=== PATIENT | female | born 1985 | race Caucasian/White ===

== ENCOUNTER 2021-03-15 09:42 | Inpatient (IN) | payer OTHER, SELFPAY ==
--- NOTE | ~2021-03-15 | XR_ITS ---
EXAMINATION: XR CHEST CLINICAL INFORMATION: Fever and elevated white blood cell count. Rule out pneumonia. COMPARISON: Chest radiograph 01/19/2019 TECHNIQUE: Frontal view of the chest was obtained. FINDINGS: No significant abnormality is noted involving the heart, lungs, mediastinum, bony thorax or soft tissues. There are metallic clips XR/XR chest 1V overlying the right upper quadrant of the abdomen. IMPRESSION: Unremarkable examination.
[2021-03-15 10:08] VITALS: BP 113/78; PULSE 97; RESP 14; TEMP 37; O2SAT 100; BMI 29.2
[2021-03-15 10:21] VITALS: BP 113/78; PULSE 101; RESP 12; TEMP 37; O2SAT 98
--- NOTE | 2021-03-15 10:25 | ED.NAVMDI ---
HPI - Nausea/Vomiting/Diarrhea General Chief complaint: Nausea/Vomiting/Diarrhea Stated complaint: vomiting,headache Time Seen by Provider: 03/15/21 10:20 Source: patient Mode of arrival: ambulatory Limitations: no limitations History of Present Illness HPI Narrative: 35-year-old female came in for evaluation of flu-like symptoms for 2 days. Patient been having nausea and vomiting, and diarrhea, with upper abdominal cramps for the past 2 days. Patient also been having fever chills, runny nose, coughing, sneezing, and headache. No sick contact, no recent travel. Patient received vaccination for COVID x2. Related Data Previous Rx's Medication Instructions Recorded cefuroxime axetil 500 mg tablet 500 mg PO BID #20 tab 03/15/21 Allergies Allergy/AdvReac Type Severity Reaction Status Date / Time Sulfa (Sulfonamide AdvReac Unknown VOMITING Verified 03/15/21 10:20 Antibiotics) [SULFA (SULFONAMIDE ANTIBIOTICS)] Sulfamethoxazole Allergy Unknown vomiting Uncoded 10/16/19 00:00 Review of Systems Review of Systems: All other systems are reviewed and are negative Constitutional: Reports as per HPI and Reports no additional constitutional complaints Eyes: Reports as per HPI and Reports no additional eye complaints Reports system reviewed and no additional complaints, except as documented Cardiovascular: Reports as per HPI and Reports no additional cardiovascular complaints Respiratory: Reports as per HPI and Reports no additional respiratory complaints Gastrointestinal: Reports as per HPI and Reports no additional gastrointestinal complaints Genitourinary: Reports no additional female genitourinary complaints Musculoskeletal: Reports no additional musculoskeletal complaints Skin/Breast: Reports system reviewed and no additional complaints, except as docu Psychiatric: Reports no additional psychiatric complaints Endocrine: Reports no additional endocrine complaints Hematologic/Lymphatic: Reports no additional hematologic/lymphatic complaints Allergic/Immunologic: Reports no additional allergic/immunologic complaints Reports system reviewed and no additional complaints, except as documented and Reports Abnormal speech present [facility] Social History Social History Advance Directives: No Advance Directives Information Provided: Yes Physical Exam Vital Signs: Vital Signs: Last Vital Signs Temp 99.7 F 03/15/21 13:57 Pulse 84 03/15/21 13:57 Resp 16 03/15/21 13:57 BP 115/78 03/15/21 13:57 Pulse Ox 100 03/15/21 13:57 Body Mass Index 29.2 Vital signs have been reviewed as appeared to be correct. Blood pressure normal. Heart rate normal. Respiration rate normal. Temperature normal. Oxygen saturation normal. Appearance: Alert. Oriented X3. No acute distress. Head: Normal external exam. Normocephalic. Atraumatic. No Freeman signs noted. No raccoon eyes noted Eyes: PERRLA. EOMI. Conjunctiva and sclera normal. Eyelids normal. ENT: TM's Normal. Pharynx normal. Uvula midline. Moist mucous membranes. No trismus noted. No drooling noted. No muffled voice noted. Neck: Normal inspection. Neck supple. FROM. No adenopathy. Thyroid Normal. No meningeal signs. No neck mass noted. CVS: Normal heart rate and rhythm. Heart sound normal. No murmurs noted. Pulses normal throughout. Respiratory: No respiratory distress. Painless inspiration. Breath sounds normal. No wheezes/rales/rhonchi noted. Chest nontender. No accessory muscle usage noted or decreased air movement noted. Abdomen: Soft and nontender. Bowel sounds normal in all 4 quadrants. No distention noted. No organomegaly noted. No visible injury noted. Back: L CVA tenderness. Full range of motion noted. Skin: Skin warm and dry. Normal skin color. Normal skin turgor. No rashes/lesions/lacerations noted. Extremities: No lower extremity edema. Extremities exhibit normal range of motion. Extremities nontender. Neuro: Oriented X 3. Cranial nerve exam: II-XII are grossly intact No motor deficit. No sensory deficit. Reflexes normal. Course Course Course Narrative: Assessment and plan. 35-year-old female came in for evaluation of flu-like symptoms for the past 2 days, with intractable nausea, and vomiting. Leukocytosis, Patient received IV fluid and Toradol and morphine for pain. Patient is slightly feels better but still unable to keep p.o. intake because of persistent vomiting. Will admit the patient for IV hydration and IV antibiotic. MDM - Nausea/Vomiting/Diarrhea Differential Diagnosis Differential diagnosis: Likely food poisoning, gastroenteritis, drug-induced nausea and vomiting and dehydration Medical Records Attestation: I reviewed the patient's medical records. Lab Data Attestation: I reviewed the patient's lab results. Result diagrams: 03/15/21 10:45 03/15/21 10:59 Labs: Lab Results 03/15/21 03/15/21 03/15/21 Range/Units 10:45 10:45 10:45 WBC 18.5 H (4.8-10.8) X10*3/uL RBC 4.18 L (4.20-5.50) X10*6/uL Hgb 12.1 (12.0-16.0) g/dl Hct 36.1 L (37-47) % MCV 86.4 (80-98) fL MCH 28.9 (27.0-33.0) pg MCHC 33.5 (31.0-35.0) g/dl RDW 14.5 (11.0-16.0) % Plt Count 260 (160-400) X10*3/uL MPV 10.4 (9.4-12.3) fL Immature Gran % (Auto) 0.9 H (0.0-0.4) % Neut % (Auto) 77.4 H (45-73) % Lymph % (Auto) 10.1 L (20-40) % [place] % (Auto) 11.0 (2-11) % Eos % (Auto) 0.4 (0-4) % Baso % (Auto) 0.2 (0-2) % Lymph # (Auto) 1.9 (1.2-4.9) X10*3/uL [place] # (Auto) 2.0 H (0.1-1.2) X10*3/uL Eos # (Auto) 0.1 (0.0-0.4) X10*3/uL Baso # (Auto) 0.0 (0.0-0.2) X10*3/uL Abs Immat Gran (auto) 0.16 H (0.00-0.03) X10*3/uL Absolute Neuts (auto) 14.3 H (2.0-8.3) X10*3/uL Absolute Nucleated RBC 0.000 (0.0-0.012) X10*3/uL Nucleated RBC % (auto) 0.0 (0.0-0.2) /100WBC Smear Tech's Comments VERIFIED Sodium (135-145) mmol/L Potassium (3.3-5.1) mmol/L Chloride (96-108) mmol/L Carbon Dioxide (22-29) mmol/L Anion Gap (12-20) BUN (9-16) mg/dL Creatinine (0.5-1.4) mg/dL Estim Creat Clear Calc Estimated GFR Random Glucose (60-115) mg/dL Lactic Acid 1.5 (0.5-2.0) mmol/L Calcium (8.4-10.2) mg/dL Total Bilirubin (0.0-1.0) mg/dL Direct Bilirubin (0.0-0.5) mg/dL AST (5-31) U/L ALT (0-31) U/L Alkaline Phosphatase (39-117) U/L Total Protein (6.5-8.0) g/dL Albumin (3.5-5.0) g/dL Lipase (8-78) U/L Urine Color Urine Appearance Urine pH (5.0-8.0) Ur Specific Ir[place] (1.005-1.025) Urine Protein (NEG-TRACE) MG/DL Urine Glucose (UA) (NEG) MG/DL Urine Ketones (NEG) MG/DL Urine Blood (NEG) Urine Nitrite (NEG) Ur Leukocyte Esterase (NEG) Urine RBC (0) /HPF Urine WBC (0-4) /HPF Ur Squamous Epith Cells /LPF Urine Bacteria /LPF Coronavirus (PCR) NEGATIVE (Negative) Influenza Type A (PCR) NEGATIVE (Negative) Influenza Type B (PCR) NEGATIVE (Negative) RSV RNA Qual (PCR) NEGATIVE (Negative) 03/15/21 03/15/21 Range/Units 10:45 10:59 WBC (4.8-10.8) X10*3/uL RBC (4.20-5.50) X10*6/uL Hgb (12.0-16.0) g/dl Hct (37-47) % MCV (80-98) fL MCH (27.0-33.0) pg MCHC (31.0-35.0) g/dl RDW (11.0-16.0) % Plt Count (160-400) X10*3/uL MPV (9.4-12.3) fL Immature Gran % (Auto) (0.0-0.4) % Neut % (Auto) (45-73) % Lymph % (Auto) (20-40) % [place] % (Auto) (2-11) % Eos % (Auto) (0-4) % Baso % (Auto) (0-2) % Lymph # (Auto) (1.2-4.9) X10*3/uL [place] # (Auto) (0.1-1.2) X10*3/uL Eos # (Auto) (0.0-0.4) X10*3/uL Baso # (Auto) (0.0-0.2) X10*3/uL Abs Immat Gran (auto) (0.00-0.03) X10*3/uL Absolute Neuts (auto) (2.0-8.3) X10*3/uL Absolute Nucleated RBC (0.0-0.012) X10*3/uL Nucleated RBC % (auto) (0.0-0.2) /100WBC Smear Tech's Comments Sodium 137 (135-145) mmol/L Potassium 3.3 (3.3-5.1) mmol/L Chloride 102 (96-108) mmol/L Carbon Dioxide 25 (22-29) mmol/L Anion Gap 13 (12-20) BUN 13 (9-16) mg/dL Creatinine 0.86 (0.5-1.4) mg/dL Estim Creat Clear Calc 77.0 Estimated GFR > 60 Random Glucose 95 (60-115) mg/dL Lactic Acid (0.5-2.0) mmol/L Calcium 8.8 (8.4-10.2) mg/dL Total Bilirubin 0.5 (0.0-1.0) mg/dL Direct Bilirubin 0.2 (0.0-0.5) mg/dL AST 22 (5-31) U/L ALT 43 H (0-31) U/L Alkaline Phosphatase 186 H (39-117) U/L Total Protein 6.6 (6.5-8.0) g/dL Albumin 3.7 (3.5-5.0) g/dL Lipase 7 L (8-78) U/L Urine Color YELLOW Urine Appearance CLEAR Urine pH 6.0 (5.0-8.0) Ur Specific [place] 1.015 (1.005-1.025) Urine Protein 2+ H (NEG-TRACE) MG/DL Urine Glucose (UA) NEG (NEG) MG/DL Urine Ketones 5 (NEG) MG/DL Urine Blood 2+ H (NEG) Urine Nitrite NEG (NEG) Ur Leukocyte Esterase TRACE H (NEG) Urine RBC 1-4 (0) /HPF Urine WBC 5-9 H (0-4) /HPF Ur Squamous Epith Cells TRACE /LPF Urine Bacteria 1+ /LPF Coronavirus (PCR) (Negative) Influenza Type A (PCR) (Negative) Influenza Type B (PCR) (Negative) RSV RNA Qual (PCR) (Negative) Imaging Data Chest x-ray: Radiologist's impression: No significant abnormality is noted involving the heart, lungs, mediastinum, bony thorax or soft tissues. There are metallic clips overlying the right upper quadrant of the abdomen. IMPRESSION: Unremarkable examination. ? Discharge Plan Discharge Clinical Impression: Gastroenteritis, Dehydration, Pyelonephritis Patient Disposition: Admitted As Inpatient Instructions: Urinary Tract Infection in Women (ED) Prescriptions: New cefuroxime axetil 500 mg tablet 500 mg PO BID Qty: 20 RF: 0 Referrals: Alisha Fong MD [Primary Care Provider] - 2 days
--- NOTE | 2021-03-15 10:45 | PC.NURSE ---
pt alert and oriented x3, tachy on monitor. she c/o of headache, n/v, epigastric pain, stuffy runny nose, nonproductive cough since . no dizziness, no chest pain, no sob, no difficulty breathing. Pt states she has not had any exposure to anyone sick. She took Tylenol for headache this morning but no relief. She does not report any other symptoms. pt awaiting lab results, no apparent distress.
[2021-03-15 10:57] LABS: Basophils Percent Auto 0.2 % (0-2); Eosinophils Absolute Auto 0.1 X10*3/uL (0.0-0.4); Eosinophils Percent Auto 0.4 % (0-4); Hematocrit 36.1 % (37-47); Hemoglobin 12.1 g/dl (12.0-16.0); Imm Gran Abs Auto 0.16 X10*3/uL (0.00-0.03); Imm Gran Pct Auto 0.9 % (0.0-0.4); Lymphocytes Absolute Auto 1.9 X10*3/uL (1.2-4.9); Lymphocytes Percent Auto 10.1 % (20-40); MANUAL DIFF FLAG SCAN; Mean Corpuscular HGB Conc 33.5 g/dl (31.0-35.0); Mean Corpuscular Hemoglobin 28.9 pg (27.0-33.0); Mean Corpuscular Volume 86.4 fL (80-98); Mean Platelet Volume 10.4 fL (9.4-12.3); Neutrophils Absolute Auto 14.3 X10*3/uL (2.0-8.3); Neutrophils Percent Auto 77.4 % (45-73); Platelet Count 260 X10*3/uL (160-400); Red Blood Count 4.18 X10*6/uL (4.20-5.50); Red Cell Distribution Width 14.5 % (11.0-16.0); SCAN SMEAR FLAG 1; White Blood Count 18.5 X10*3/uL (4.8-10.8)
[2021-03-15] MEDS: 0.9 % Sodium Chloride 1,000 ML 999 ML IVCONT ×2 (11:04→13:53)
[2021-03-15 11:09] LABS: Glucose Urine UA NEG (NEG); Leukocyte Esterase Urine TRACE (NEG); Nitrite Urine NEG (NEG); Specific Gravity - Urine 1.015 (1.005-1.025); UACC Culture Trigger YES; Urine Blood 2+ (NEG); Urine Ketones 5 MG/DL (NEG); Urine Protein 2+ MG/DL (NEG-TRACE)
[2021-03-15 11:12] LABS: Appearance Urine CLEAR; Color Urine YELLOW
[2021-03-15] MEDS: ondansetron HCL 4 MG/2 ML VIAL IVPUSH ×3 (11:12→19:43)
[2021-03-15] MEDS: Famotidine/PF 20 MG/2 ML VIAL IVPUSH (11:12)
[2021-03-15 11:13] LABS: Lactic Acid 1.5 mmol/L (0.5-2.0)
[2021-03-15 11:22] LABS: Bacteria Urine 1+ /LPF; Squamous Epithelial Cell Urine TRACE /LPF
[2021-03-15 11:26] LABS: SLIDE REVIEW VERIFIED
[2021-03-15 11:33] LABS: Alanine Aminotransferase 43 U/L (0-31); Albumin Level 3.7 g/dL (3.5-5.0); Alkaline Phosphatase 186 U/L (39-117); Anion Gap 13 (12-20); Aspartate Amino Transferase 22 U/L (5-31); Bilirubin Direct 0.2 mg/dL (0.0-0.5); Bilirubin Total 0.5 mg/dL (0.0-1.0); Blood Urea Nitrogen 13 mg/dL (9-16); Calcium 8.8 mg/dL (8.4-10.2); Carbon Dioxide 25 mmol/L (22-29); Chloride 102 mmol/L (96-108); Estimated Glomerular Filt Rate > 60; Glucose Random 95 mg/dL (60-115); Lipase 7 U/L (8-78); Potassium 3.3 mmol/L (3.3-5.1); Sodium 137 mmol/L (135-145); Total Protein 6.6 g/dL (6.5-8.0)
--- NOTE | 2021-03-15 13:50 | PC.NURSE ---
Pt's vs remains stable. She c/o worsening abdominal pain. she also stated she still feels nauseous. pt has not vomited since arriving to the ed. She was given crackers and apple juice and was able to keep it down. However, she still c/o nausea after eating. iv meds given as document, fluids hung. Pt resting quietly at this time, no apparent distress noted.
[2021-03-15] MEDS: Ketorolac Tromethamine 15 MG/ML VIAL 30 MG IVPUSH (13:54)
[2021-03-15] MEDS: cefTRIAXone sodium 1 GM in 0.9 % Sodium Chloride 50 ML IV (13:54)
[2021-03-15 13:57] VITALS: BP 115/78; PULSE 84; RESP 16; TEMP 37.6; O2SAT 100
[2021-03-15 14:03] LABS: Influenza A PCR NEGATIVE (Negative); Influenza B PCR NEGATIVE (Negative); Resp Syncy Virus RNA Qual PCR NEGATIVE (Negative); SARS COV2 PCR INHOUSE NEGATIVE (Negative)
[2021-03-15] MEDS: Morphine Sulfate 2 MG/ML CARTRIDGE IVPUSH (15:17)
[2021-03-15 15:38] VITALS: BP 107/63; PULSE 92; RESP 18; TEMP 36.8; O2SAT 100
[2021-03-15 16:00] VITALS: BP 102/66; PULSE 84; RESP 16; TEMP 36.8; O2SAT 99
--- NOTE | 2021-03-15 17:20 | PC.NURSE ---
Admitting provider in to see pt. pt awaiting bed assignment. vs remains stable. Fluids hung as documented
[2021-03-15] MEDS: Dextrose 5 % and 0.9 % NaCl 1,000 ML 100 ML IVCONT (17:47)
--- NOTE | 2021-03-15 17:48 | HP_ITS ---
DATE OF SERVICE: 03/15/2021 CHIEF COMPLAINT: Nausea, vomiting, and abdominal cramps. HISTORY OF PRESENTING ILLNESS: This is a 35-year-old female patient with no significant past medical history, presented to [facility] with 2 days' history of nausea, vomiting, has not eaten in 3 days with projectile vomitus, non bloody, associated with abdominal cramps, headache, fever, chills with T-max 102.9 at home. She was urinating and vomiting at the same time, so did not realize if she has any urinary burning or not, but does admit to have urinary frequency. Also complained of lower back pain with no radiation, no prior history of recurrent urinary tract infection. No other family member is sick. No history of recent travel. Denies any skin rash, joint pains. In the emergency room, the patient was noted to have tachycardia. She is afebrile. Laboratory data showed an elevated WBC count. Urinalysis is mildly positive with 5 to 9 wbc's and 1+ bacteria. The patient was treated in the emergency room with IV fluids, IV morphine, but due to persistent nausea, vomiting, and inability to keep the food down, the patient is being admitted to [facility] with a possible diagnosis of acute pyelonephritis. PAST MEDICAL HISTORY: Significant for compromised immune system. MEDICATIONS: She is not on any home medication. ALLERGIES: THE PATIENT IS ALLERGIC TO SULFA THAT CAUSES VOMITING. SOCIAL HISTORY: The patient lives with a boyfriend. She smokes half a pack of cigarettes a day. She denies any illicit drug use. She occasionally drinks alcohol. FAMILY HISTORY: Father in an accident. Mother does not have any acute medical issues. Does not have any history of diabetes or premature coronary artery disease. 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 CVS: She denies any chest pain or palpitations. RESPIRATORY: She denies any cough, sputum production, or shortness of breath. : She is complaining of urinary burning and frequency. MUSCULOSKELETAL: Denies any joint pain. SKIN: Denies any rashes. Rest of all other system reviewed and are negative. PHYSICAL EXAMINATION: GENERAL: The patient is resting in bed. Does not appear to be in acute distress. VITAL SIGNS: BP 102/66; pulse of 84, initially pulse was 101; T-max 99.7; O2 saturation 99 on room air. HEENT: Pupils equal, round, and reactive to light and accommodation. Extraocular muscles intact. Anicteric sclerae. NECK: Supple. No JVD. No lymphadenopathy. LUNGS: Clear to auscultation bilaterally. HEART: Regular rate and rhythm. ABDOMEN: Soft, nontender. Bowel sounds are audible. LOWER BACK: Mild CVA tenderness bilaterally. EXTREMITIES: Without clubbing, cyanosis, or edema. SKIN: Warm and dry. No rashes. NEUROLOGIC: Nonfocal. LABORATORY DATA: Showed a WBC count of 18,500, hematocrit 36. Sodium 137, potassium 3.3, ALT 43, alkaline phosphatase 186, and lipase of 7. Gillespie PCR is negative. Influenza A is negative. PNRSV PCR is negative. IMAGING STUDY: Chest x-ray showed no acute abnormality. Urinalysis showed 2+ blood, trace leukocyte esterase, 5 to 9 wbc's and 1+ bacteria. ASSESSMENT AND PLAN: This is a 35-year-old female patient with no significant past medical history, presented with multiple symptoms including nausea, vomiting, headache, fever, chills, and urinary symptoms. The patient is being admitted with intractable nausea, vomiting likely related to acute pyelonephritis. 1. Intractable nausea, vomiting, fever and leukocytosis likley Sepsis due to acute pyelonephritis, will admit to medical floor, will be placed on IV fluids, antiemetics, and IV ceftriaxone. We will follow 2 sets of blood cultures and urine cultures. Place on morphine and Tylenol for pain control. Elevated LFTs likely due to sepsis will follow labs 2. Deep vein thrombosis prophylaxis. Low risk. 3. Code status, full code. MD TEREZA Lorenz/JULIETTE / [id number] HERIBERTO
--- NOTE | 2021-03-15 18:35 | PC.NURSE ---
report given to VALENTINO Stockton on IMC. Pt eating supper at this time, tolerating po meal well
[2021-03-15] MEDS: 0.9 % Sodium Chloride Flush 3 ML SYRINGE IVFLUSH (19:42)
[2021-03-15] MEDS: Morphine Sulfate 4 MG/ML CARTRIDGE 3 MG IVPUSH (19:42)
[2021-03-15] MEDS: Acetaminophen 325 MG TABLET 650 MG PO (23:07)
[2021-03-15 23:16] VITALS: BP 112/68; PULSE 87; RESP 16; TEMP 36.8; O2SAT 100
[2021-03-16] MEDS: Morphine Sulfate 4 MG/ML CARTRIDGE 3 MG IVPUSH ×6 (00:01→21:17)
[2021-03-16] MEDS: ondansetron HCL 4 MG/2 ML VIAL IVPUSH ×3 (04:25→21:17)
[2021-03-16] MEDS: Dextrose 5 % and 0.9 % NaCl 1,000 ML 100 ML IVCONT ×2 (04:25→14:49)
[2021-03-16 07:23] VITALS: BP 105/69; PULSE 73; RESP 18; TEMP 36.6; O2SAT 99
[2021-03-16] MEDS: 0.9 % Sodium Chloride Flush 3 ML SYRINGE IVFLUSH ×3 (08:33→21:17)
--- NOTE | 2021-03-16 08:53 | MHC.CM.PN ---
CM met with Patient at bedside. Patient lives in a condo with her Boyfriend and she is functionally independent and working. Patient's goal for dc is to return home and CM has initiated and will follow for dc planning. PCP is DR. Mer Fong.
[2021-03-16 11:18] VITALS: BP 119/73; PULSE 77; RESP 18; TEMP 36.3; O2SAT 100
[2021-03-16] MEDS: cefTRIAXone sodium 1 GM in 0.9 % Sodium Chloride 50 ML IV (12:36)
[2021-03-16 14:03] LABS: MANUAL DIFF FLAG NO
[2021-03-16 14:05] LABS: Basophils Percent Auto 0.2 % (0-2); Eosinophils Absolute Auto 0.1 X10*3/uL (0.0-0.4); Eosinophils Percent Auto 1.3 % (0-4); Hematocrit 28.5 % (37-47); Hemoglobin 9.4 g/dl (12.0-16.0); Imm Gran Abs Auto 0.14 X10*3/uL (0.00-0.03); Imm Gran Pct Auto 1.4 % (0.0-0.4); Lymphocytes Percent Auto 19.8 % (20-40); Mean Corpuscular Hemoglobin 28.7 pg (27.0-33.0); Mean Corpuscular Volume 86.9 fL (80-98); Mean Platelet Volume 10.3 fL (9.4-12.3); Monocytes Absolute Auto 1.2 X10*3/uL (0.1-1.2); Neutrophils Absolute Auto 6.6 X10*3/uL (2.0-8.3); Neutrophils Percent Auto 65.3 % (45-73); Platelet Count 248 X10*3/uL (160-400); Red Blood Count 3.28 X10*6/uL (4.20-5.50); Red Cell Distribution Width 14.8 % (11.0-16.0); White Blood Count 10.2 X10*3/uL (4.8-10.8)
[2021-03-16 14:31] LABS: Alanine Aminotransferase 24 U/L (0-31); Albumin Level 3.1 g/dL (3.5-5.0); Alkaline Phosphatase 134 U/L (39-117); Aspartate Amino Transferase 13 U/L (5-31); Bilirubin Direct < 0.2 mg/dL (0.0-0.5); Bilirubin Total 0.5 mg/dL (0.0-1.0); Total Protein 5.4 g/dL (6.5-8.0)
[2021-03-16] MEDS: Cyclobenzaprine HCl 10 MG TABLET PO ×2 (14:49→21:15)
[2021-03-16] MEDS: clonazePAM 1 MG TABLET PO ×2 (14:49→21:16)
[2021-03-16 15:08] VITALS: BP 113/71; PULSE 90; RESP 20; TEMP 36.3; O2SAT 100
--- NOTE | 2021-03-16 15:43 | HO.PM.IMPN ---
Subjective Subjective Date of Service: 03/16/21 Interval History: Complaining of lack of sleep due to IV beeping all night, complaining of nausea, abdominal discomfort and diarrhea unable to eat. Review of Systems General no headache, no dizziness no fever chills. CVS no chest pain, no palpitation. Respiratory no cough no sob Gastrointestinal complaining of nausea, abdominal pain, and diarrhea loose watery, nonbloody Physical Exam Vital Signs: Vital Signs: Last Vital Signs Temp 97.4 F 03/16/21 15:08 Pulse 90 03/16/21 15:08 Resp 20 03/16/21 15:08 BP 113/71 03/16/21 15:08 Pulse Ox 100 03/16/21 15:08 Body Mass Index 29.2 General no acute distress. Neck supple no JVD. CVS regular rate rhythm, Respiratory lungs clear to auscultation, no respiratory distress, no wheeze, no rhonchi. Gastrointestinal abdomen soft, nontender, bowel sounds audible, no guarding , no rigidity. No Bhandari sign No CVA tenderness Extremities no edema. Neuro nonfocal . Skin no rash Objective Data Current Medications Generic Name Dose Route Start Last Admin Trade Name Freq PRN Reason Stop Dose Admin Acetaminophen 650 mg 03/15/21 16:54 03/15/21 23:07 Acetaminophen 325 Mg Tablet PO 650 mg Q6H PRN Administration Pain, Mild (Pain Scale 1-3) Buspirone HCl 10 mg 03/16/21 21:00 Buspirone Hcl 10 Mg Tablet PO BID TINO Clonazepam 1 mg 03/16/21 13:29 03/16/21 14:49 Clonazepam 1 Mg Tablet PO 1 mg BID PRN Administration anxiety Cyclobenzaprine HCl 10 mg 03/16/21 13:29 03/16/21 14:49 Cyclobenzaprine Hcl 10 Mg Tablet PO 10 mg TID PRN Administration muscle spasm Duloxetine HCl 60 mg 03/16/21 21:00 Duloxetine Hcl 60 Mg Capsule. PO BEDTIME TINO Dextrose/Sodium Chloride 1,000 mls @ 100 mls/hr 03/15/21 17:00 03/16/21 14:49 D5ns IVCONT 100 mls/hr .Q10H TINO Administration Ceftriaxone Sodium 1 gm/ 50 mls @ 100 mls/hr 03/16/21 13:00 03/16/21 13:08 Sodium Chloride IV Infused Q24H TINO Infusion Morphine Sulfate 3 mg 03/15/21 16:54 03/16/21 12:35 Morphine Sulfate 4 Mg/Ml Cartridge IVPUSH 3 mg Q4H PRN Administration Pain, Severe (Pain Scale 7-10) Protocol Omeprazole 20 mg 03/17/21 06:30 Omeprazole 20 Mg Capsule. PO DAILY@0630 [facility] Ondansetron HCl 4 mg 03/15/21 16:54 03/16/21 12:35 Ondansetron Hcl 4 Mg/2 Ml Vial IVPUSH 4 mg Q8H PRN Administration Nausea and Vomiting Sodium Chloride 3 ml 03/16/21 00:00 03/16/21 08:33 0.9 % Sodium Chloride Flush 3 Ml Syringe IVFLUSH 3 ml QSHIFT [facility] Administration Labs CBC & Chem 7: 03/16/21 13:47 03/15/21 10:59 Labs: Laboratory Results - last 24 hr 03/16/21 03/16/21 13:47 13:47 MCV 86.9 MCH 28.7 MCHC 33.0 RDW 14.8 Plt Count 248 MPV 10.3 Immature Gran % (Auto) 1.4 H Neut % (Auto) 65.3 Lymph % (Auto) 19.8 L [place] % (Auto) 12.0 H Eos % (Auto) 1.3 Baso % (Auto) 0.2 Lymph # (Auto) 2.0 [place] # (Auto) 1.2 Eos # (Auto) 0.1 Baso # (Auto) 0.0 Abs Immat Gran (auto) 0.14 H Absolute Neuts (auto) 6.6 Absolute Nucleated RBC 0.000 Nucleated RBC % (auto) 0.0 Total Bilirubin 0.5 Direct Bilirubin < 0.2 AST 13 D ALT 24 Alkaline Phosphatase 134 H D Total Protein 5.4 L Albumin 3.1 L Microbiology Microbiology Results: Microbiology 03/15/21 10:58 Blood Culture - Preliminary Blood - Venous No growth after 24 hours. 03/15/21 10:45 Blood Culture - Preliminary Blood - Venous No growth after 24 hours. 03/15/21 Unknown Urine Culture - Final Urine clean catch - Urine lopez top Assessment and Plan (1) Gastroenteritis: Status: Acute (2) Dehydration: Status: Acute (3) Elevated LFTs: Status: Acute Assessment and Plan: 35-year-old female patient with no significant past medical history, presented with multiple symptoms including nausea, vomiting, headache, fever,chills, and urinary symptoms.? The patient is being admitted with intractable nausea, vomiting related to acute pyelonephritis. 1. Intractable nausea vomiting abdominal pain and diarrhea Leukocytosis and tachycardia Likely due to gastroenteritis, therefore no sepsis, blood culture x2 negative Initially admitted due to sepsis with assumption of acute pyelo since urinalysis was positive, however urine culture is negative Will discontinue IV antibiotic Continue supportive care with antiemetics, analgesics and IV fluid Borderline low potassium will replace and follow BMP no sepsis 2. Elevated LFTs likely due to gastroenteritis, LFTs trending down no right upper quadrant abdominal pain follow labs 3.Mood disorder continue Cymbalta and buspirone Deep vein thrombosis prophylaxis.? Low risk. Code status, full code. Quality Stroke Does the patient have a stroke diagnosis?: No VTE Prior VTE?: No VTE Risk Level:: Medical - low VTE Device Contraindication: Treatment Not Indicated VTE Drug Contraindication: Treatment Not Indicated
[2021-03-16] MEDS: KCl 40 mEq in 0.9 % Sodium Chl 40 MEQ/1,000 ML IV.SOLN 100 MEQ IVCONT (17:08)
[2021-03-16] MEDS: busPIRone HCl 10 MG TABLET PO (21:16)
[2021-03-16] MEDS: DULoxetine HCl 60 MG CAPSULE.DR PO (21:16)
[2021-03-16 23:36] VITALS: BP 94/48; PULSE 82; RESP 18; TEMP 37.2; O2SAT 99
[2021-03-17] MEDS: Morphine Sulfate 4 MG/ML CARTRIDGE 3 MG IVPUSH ×3 (02:11→10:30)
[2021-03-17] MEDS: Omeprazole 20 MG CAPSULE.DR PO (06:16)
[2021-03-17] MEDS: ondansetron HCL 4 MG/2 ML VIAL IVPUSH (06:17)
[2021-03-17 06:44] LABS: Hemoglobin 10.1 g/dl (12.0-16.0); Mean Corpuscular HGB Conc 33.7 g/dl (31.0-35.0); Mean Corpuscular Volume 86.2 fL (80-98); Mean Platelet Volume 10.2 fL (9.4-12.3); Platelet Count 282 X10*3/uL (160-400); Red Blood Count 3.48 X10*6/uL (4.20-5.50); Red Cell Distribution Width 15.2 % (11.0-16.0); White Blood Count 11.2 X10*3/uL (4.8-10.8)
[2021-03-17 07:04] VITALS: BP 109/64; PULSE 75; RESP 20; TEMP 36.6; O2SAT 98
[2021-03-17 07:14] LABS: Alanine Aminotransferase 23 U/L (0-31); Albumin Level 3.3 g/dL (3.5-5.0); Alkaline Phosphatase 134 U/L (39-117); Anion Gap 14 (12-20); Aspartate Amino Transferase 13 U/L (5-31); Bilirubin Direct 0.2 mg/dL (0.0-0.5); Bilirubin Total 0.7 mg/dL (0.0-1.0); Blood Urea Nitrogen 3 mg/dL (9-16); Calcium 8.6 mg/dL (8.4-10.2); Carbon Dioxide 23 mmol/L (22-29); Chloride 110 mmol/L (96-108); Creatinine Clr Calc Pharmacy 78.9; Estimated Glomerular Filt Rate > 60; Glucose Random 99 mg/dL (60-115); Potassium 3.8 mmol/L (3.3-5.1); Sodium 143 mmol/L (135-145); Total Protein 5.8 g/dL (6.5-8.0)
[2021-03-17] MEDS: 0.9 % Sodium Chloride Flush 3 ML SYRINGE IVFLUSH (07:49)
[2021-03-17] MEDS: busPIRone HCl 10 MG TABLET PO (07:49)
[2021-03-17] MEDS: clonazePAM 1 MG TABLET PO (10:39)
[2021-03-17] MEDS: Cyclobenzaprine HCl 10 MG TABLET PO (10:39)
--- NOTE | 2021-03-17 11:24 | PC.NURSE ---
Pt went to ambulate halls and left the floor. This RN notified security as well as nursing supervisor [place] department, [place].
[2021-03-17 12:13] LABS: CDiff Gene PCR NEGATIVE (Negative)
--- NOTE | 2021-03-17 12:31 | P.PNIM_ITS ---
Progress Note: A&P Assessment and Plan: 35-year-old female patient with no significant past medical history, presented with multiple symptoms including nausea, vomiting, headache, fever,chills, and urinary symptoms.? The patient is being admitted with intractable nausea, vomiting related to acute pyelonephritis. Gastroenteritis with Intractable nausea vomiting abdominal pain and diarrhea Initially admitted due to sepsis with assumption of acute pyelo since urinalysis was positive, however urine culture is negative Leukocytosis and tachycardia Likely due to gastroenteritis, therefore no sepsis, blood culture x2 negative Will discontinue IV antibiotic Continue supportive care with antiemetics, analgesics and IV fluid Elevated LFTs likely due to gastroenteritis, LFTs trending down Mood disorder continue Cymbalta and buspirone Deep vein thrombosis prophylaxis.? Low risk. Code status, full code. Subjective Subjective Date of Service: 03/17/21 Interval History: Follow up gastroenteritis still with some nausea but better than yesterday having diarrhea continued abdominal pain Physical Exam Vital Signs: Vital Signs: Last Vital Signs Temp 98 F 03/17/21 07:04 Pulse 75 03/17/21 07:04 Resp 20 03/17/21 07:04 BP 109/64 03/17/21 07:04 Pulse Ox 98 03/17/21 07:04 Body Mass Index 29.2 Appearing in no acute distress lungs normal expansion heart regular rate rhythm abd tender neuro patient is alert x3, no focal deficits Objective Data Current Medications Generic Name Dose Route Start Last Admin Trade Name Freq PRN Reason Stop Dose Admin Acetaminophen 650 mg 03/15/21 16:54 03/15/21 23:07 Acetaminophen 325 Mg Tablet PO 650 mg Q6H PRN Administration Pain, Mild (Pain Scale 1-3) Buspirone HCl 10 mg 03/16/21 21:00 03/17/21 07:49 Buspirone Hcl 10 Mg Tablet PO 10 mg BID TINO Administration Clonazepam 1 mg 03/16/21 13:29 03/17/21 10:39 Clonazepam 1 Mg Tablet PO 1 mg BID PRN Administration anxiety Cyclobenzaprine HCl 10 mg 03/16/21 13:29 03/17/21 10:39 Cyclobenzaprine Hcl 10 Mg Tablet PO 10 mg TID PRN Administration muscle spasm Duloxetine HCl 60 mg 03/16/21 21:00 03/16/21 21:16 Duloxetine Hcl 60 Mg Capsule.Dr PO 60 mg BEDTIME TINO Administration Morphine Sulfate 3 mg 03/15/21 16:54 03/17/21 10:30 Morphine Sulfate 4 Mg/Ml Cartridge IVPUSH 3 mg Q4H PRN Administration Pain, Severe (Pain Scale 7-10) Protocol Omeprazole 20 mg 03/17/21 06:30 03/17/21 06:16 Omeprazole 20 Mg Capsule. PO 20 mg DAILY@0630 TINO Administration Ondansetron HCl 4 mg 03/15/21 16:54 03/17/21 06:17 Ondansetron Hcl 4 Mg/2 Ml Vial IVPUSH 4 mg Q8H PRN Administration Nausea and Vomiting Sodium Chloride 3 ml 03/16/21 00:00 03/17/21 07:49 0.9 % Sodium Chloride Flush 3 Ml Syringe IVFLUSH 3 ml QSHIFT [facility] Administration Labs CBC & Chem 7: 03/17/21 05:56 03/17/21 05:56 Labs: Laboratory Results - last 24 hr 03/16/21 03/16/21 03/17/21 13:47 13:47 05:56 MCV 86.9 86.2 MCH 28.7 29.0 MCHC 33.0 33.7 RDW 14.8 15.2 Plt Count 248 282 MPV 10.3 10.2 Immature Gran % (Auto) 1.4 H Neut % (Auto) 65.3 Lymph % (Auto) 19.8 L [place] % (Auto) 12.0 H Eos % (Auto) 1.3 Baso % (Auto) 0.2 Lymph # (Auto) 2.0 [place] # (Auto) 1.2 Eos # (Auto) 0.1 Baso # (Auto) 0.0 Abs Immat Gran (auto) 0.14 H Absolute Neuts (auto) 6.6 Absolute Nucleated RBC 0.000 0.000 Nucleated RBC % (auto) 0.0 0.0 Anion Gap Estim Creat Clear Calc Estimated GFR Random Glucose Calcium Total Bilirubin 0.5 Direct Bilirubin < 0.2 AST 13 D ALT 24 Alkaline Phosphatase 134 H D Total Protein 5.4 L Albumin 3.1 L C. difficile Tox B Gene 03/17/21 03/17/21 05:56 10:40 MCV MCH MCHC RDW Plt Count MPV Immature Gran % (Auto) Neut % (Auto) Lymph % (Auto) [place] % (Auto) Eos % (Auto) Baso % (Auto) Lymph # (Auto) [place] # (Auto) Eos # (Auto) Baso # (Auto) Abs Immat Gran (auto) Absolute Neuts (auto) Absolute Nucleated RBC Nucleated RBC % (auto) Anion Gap 14 Estim Creat Clear Calc 78.9 Estimated GFR > 60 Random Glucose 99 Calcium 8.6 Total Bilirubin 0.7 Direct Bilirubin 0.2 AST 13 ALT 23 Alkaline Phosphatase 134 H Total Protein 5.8 L Albumin 3.3 L C. difficile Tox B Gene NEGATIVE Microbiology Microbiology Results: Microbiology 03/15/21 10:58 Blood - Venous Blood Culture - Preliminary No growth after 24 hours. 03/15/21 10:45 Blood - Venous Blood Culture - Preliminary No growth after 24 hours. 03/15/21 Unknown Urine clean catch - Urine lopez top Urine Culture - Final Quality Stroke Does the patient have a stroke diagnosis?: No VTE Prior VTE?: No VTE Risk Level:: Medical - low VTE Device Contraindication: Treatment Not Indicated VTE Drug Contraindication: Treatment Not Indicated
--- NOTE | 2021-03-17 13:18 | MHC.CM.PN ---
pt dcd home no servceis indicated
--- NOTE | 2021-03-17 13:19 | P.DS_ITS ---
DS: Providers Provider Date of Service: 03/17/21 Date of admission: 03/15/21 16:54 Date of discharge: 03/17/21 Primary care physician: Alisha Fong MD Admitting clinician: Shyann Lee Attending physician on admission: Shyann Lee Attending physician on discharge: Geovany Campbell Discharging clinician: Petra Sims DS: Diagnosis Discharge Diagnosis (1) Gastroenteritis: Status: Acute (2) Dehydration: Status: Acute (3) Elevated LFTs: Status: Acute DS: Medications Discharge Medications Home Medications: Home Medications Medication Instructions Recorded Confirmed buspirone 10 mg tablet 1 tab PO BID 03/16/21 03/16/21 celecoxib 200 mg capsule 1 cap PO DAILY 03/16/21 03/16/21 clonazepam 1 mg tablet 1 tab PO BID PRN 03/16/21 03/16/21 cyclobenzaprine 10 mg tablet 1 tab PO TID PRN 03/16/21 03/16/21 duloxetine 60 mg capsule,delayed 1 cap PO QPM 03/16/21 03/16/21 release (Cymbalta) omeprazole 20 mg capsule,delayed 1 cap PO DAILY 03/16/21 03/16/21 release Previous Rx's Medication Instructions Recorded ondansetron HCl 4 mg tablet 4 mg PO Q8H PRN #9 tab 03/17/21 (Zofran) oxycodone 5 mg tablet 5 mg PO Q8H PRN #9 tab 03/17/21 DS: Summary Hospital Course Hospital Course: HP as per admitting provider This is a 35-year-old female patient with no significant past medical history, presented to [facility] with 2 days' history of nausea, vomiting, has not eaten in 3 days with projectile vomitus, non bloody, associated with abdominal cramps, headache, fever, chills with T-max 102.9 at home.? She was urinating and vomiting at the same time, so did not realize if she has any urinary burning or not, but does admit to have urinary frequency.? Also complained of lower back pain with no radiation, no prior history of recurrent urinary tract infection.? No other family member is sick.? No history of recent travel. Denies any skin rash, joint pains.? In the emergency room, the patient was noted to have tachycardia.? She is afebrile.? Laboratory data showed an elevated WBC count.? Urinalysis is mildly positive with 5 to 9 wbc's and 1+ bacteria.? The patient was treated in the emergency room with IV fluids, IV morphine, but due to persistent nausea, vomiting, and inability to keep the food down, the patient is being admitted to [facility] with a possible diagnosis of acute pyelonephritis . Gastroenteritis. Patient initially thought to have pyelonephritis and was treated with Rocephin, however urine culture was negative and antibiotics stopped. She had intractable nausea, vomiting and diarrhea. Symptoms likely related to viral gastroenteritis. She was noted to have very mild transaminitis and initial WBC of 18.5, all have resolved. cdiff was negative. She still has some mild nausea and will be sent home with zofran for a few days. She stated that she was having epigastric abdominal pain and had been using morphine. She requested some pain medication fof home. She will be sent home with 9 pills of oxycodone. She was eating small amounts and medically stable for home. ? Time Spent with Patient Time attestation: Total time spent providing and/or coordinating discharge services: Discharge coordination time: Greater than 30 minutes Quality: Stroke Does the patient have a stroke diagnosis?: No Physical Exam Vital Signs: Vital Signs: Last Vital Signs Temp 98 F 03/17/21 07:04 Pulse 75 03/17/21 07:04 Resp 20 03/17/21 07:04 BP 109/64 03/17/21 07:04 Pulse Ox 98 03/17/21 07:04 Body Mass Index 29.2 Appearing in no acute distress lung sounds are clear to auscultation heart regular rate rhythm, clear S1, S2 positive bowel sounds, abdomen is soft, nontender neuro patient is alert x3, no focal deficits DS: Data Data Completed and Pending Labs on day of discharge: Laboratory Results - last 24 hr 03/16/21 03/16/21 03/17/21 13:47 13:47 05:56 WBC 10.2 11.2 H RBC 3.28 L D 3.48 L Hgb 9.4 L D 10.1 L Hct 28.5 L D 30.0 L MCV 86.9 86.2 MCH 28.7 29.0 MCHC 33.0 33.7 RDW 14.8 15.2 Plt Count 248 282 MPV 10.3 10.2 Immature Gran % (Auto) 1.4 H Neut % (Auto) 65.3 Lymph % (Auto) 19.8 L [place] % (Auto) 12.0 H Eos % (Auto) 1.3 Baso % (Auto) 0.2 Lymph # (Auto) 2.0 [place] # (Auto) 1.2 Eos # (Auto) 0.1 Baso # (Auto) 0.0 Abs Immat Gran (auto) 0.14 H Absolute Neuts (auto) 6.6 Absolute Nucleated RBC 0.000 0.000 Nucleated RBC % (auto) 0.0 0.0 Sodium Potassium Chloride Carbon Dioxide Anion Gap BUN Creatinine Estim Creat Clear Calc Estimated GFR Random Glucose Calcium Total Bilirubin 0.5 Direct Bilirubin < 0.2 AST 13 D ALT 24 Alkaline Phosphatase 134 H D Total Protein 5.4 L Albumin 3.1 L C. difficile Tox B Gene 03/17/21 03/17/21 05:56 10:40 WBC RBC Hgb Hct MCV MCH MCHC RDW Plt Count MPV Immature Gran % (Auto) Neut % (Auto) Lymph % (Auto) [place] % (Auto) Eos % (Auto) Baso % (Auto) Lymph # (Auto) [place] # (Auto) Eos # (Auto) Baso # (Auto) Abs Immat Gran (auto) Absolute Neuts (auto) Absolute Nucleated RBC Nucleated RBC % (auto) Sodium 143 Potassium 3.8 Chloride 110 H Carbon Dioxide 23 Anion Gap 14 BUN 3 L D Creatinine 0.84 Estim Creat Clear Calc 78.9 Estimated GFR > 60 Random Glucose 99 Calcium 8.6 Total Bilirubin 0.7 Direct Bilirubin 0.2 AST 13 ALT 23 Alkaline Phosphatase 134 H Total Protein 5.8 L Albumin 3.3 L C. difficile Tox B Gene NEGATIVE Preliminary micro results at discharge 03/15/21 10:58 Blood Culture - Preliminary Blood - Venous No growth after 48 hours. 03/15/21 10:45 Blood Culture - Preliminary Blood - Venous No growth after 48 hours. Discharge Plan Discharge Anticipated Discharge Date/Time: 03/17/21 13:12 Patient Disposition: Home, Self-Care Discharge Diagnosis: Gastroenteritis Referrals: Alisha Fong MD [Primary Care Provider] - None (follow up as needed) Discharge Medications: New ondansetron HCl [Zofran] 4 mg tablet 4 mg PO Q8H PRN (Reason: nausea and vomiting) Qty: 9 RF: 0 oxycodone 5 mg tablet 5 mg PO Q8H PRN (Reason: pain) Qty: 9 RF: 0 Continued duloxetine [Cymbalta] 60 mg capsule,delayed release(DR/EC) 1 cap PO QPM RF: 0 celecoxib 200 mg capsule 1 cap PO DAILY RF: 0 cyclobenzaprine 10 mg tablet 1 tab PO TID PRN (Reason: muscle spasm) RF: 0 clonazepam 1 mg tablet 1 tab PO BID PRN (Reason: anxiety) RF: 0 buspirone 10 mg tablet 1 tab PO BID RF: 0 omeprazole 20 mg capsule,delayed release(DR/EC) 1 cap PO DAILY RF: 0 Discharge Orders: Discharge Order (Routine); Ordered 03/17/21 Ordered By: Petra Sims Diet: advance to usual diet Activity on Discharge: As tolerated Stand Alone Forms: Patient Portal Discharge page Care Plan Goals: Resolution of nausea Health Concerns: Gatroenteritis Plan of Treatment: Follow up with your primary care provider as needed Try to eat small amounts of food frequently if you experience nausea. Otherwise, gradually begin to eat?bland, [id number] foods, such as soda crackers, toast, gelatin, bananas, applesauce, rice and chicken. Stop eating if your nausea returns. Assessment: See discharge summary Patient Instructions: Urinary Tract Infection in Women (ED)
== END 2021-03-17 13:49 | disposition home or self-care (01) | DRG 249 ==
LOC: HO.ED 15:14 → HO.EDOVER 17:02 → HO.IMC 18:14
PROVIDERS: Nurse Practitioner Acute Care; Admitting Provider Hospitalist; Emergency Provider Emergency Medicine; PCP Internal Medicine; Visit Provider Family Medicine
DX: K52.9 Noninfective gastroenteritis and colitis, unspecified (principal); E86.0 Dehydration; Z20.822 Contact with and (suspected) exposure to COVID-19; F17.210 Nicotine dependence, cigarettes, uncomplicated; Z71.6 Tobacco abuse counseling; Z88.2 Allergy status to sulfonamides; Z79.1 Long term (current) use of non-steroidal anti-inflammatories (NSAID); Z79.899 Other long term (current) drug therapy
CPT/HCPCS: 0241U; 36415; 71045; 80048; 80076; 81001; 83605; 83690; 85025; 85027; 87040; 87086; 87493; 96361; 96374; 96375; 96376; 99219; 99285; J0696; J1885; J2270; J2405

== ENCOUNTER 2021-03-19 16:04 | Emergency (ER) | payer OTHER, SELFPAY ==
[2021-03-19 17:43] VITALS: BP 117/80; PULSE 125; RESP 18; TEMP 37.6; O2SAT 100; BMI 25.7
--- NOTE | 2021-03-19 17:43 | ED_ITS ---
HPI - Abdominal Pain General Chief Complaint: Abdominal Pain Stated Complaint: VOMITTING AND HEADACHE Time Seen by Provider: 03/19/21 17:43 Related Data Home Medications Medication Instructions Recorded Confirmed buspirone 10 mg tablet 1 tab PO BID 03/16/21 03/16/21 celecoxib 200 mg capsule 1 cap PO DAILY 03/16/21 03/16/21 clonazepam 1 mg tablet 1 tab PO BID PRN 03/16/21 03/16/21 cyclobenzaprine 10 mg tablet 1 tab PO TID PRN 03/16/21 03/16/21 duloxetine 60 mg capsule,delayed 1 cap PO QPM 03/16/21 03/16/21 release (Cymbalta) omeprazole 20 mg capsule,delayed 1 cap PO DAILY 03/16/21 03/16/21 release Previous Rx's Medication Instructions Recorded ondansetron HCl 4 mg tablet 4 mg PO Q8H PRN #9 tab 03/17/21 (Zofran) oxycodone 5 mg tablet 5 mg PO Q8H PRN #9 tab 03/17/21 Allergies Allergy/AdvReac Type Severity Reaction Status Date / Time Sulfa (Sulfonamide AdvReac Unknown VOMITING Verified 03/15/21 10:20 Antibiotics) [SULFA (SULFONAMIDE ANTIBIOTICS)] Sulfamethoxazole Allergy Unknown vomiting Uncoded 10/16/19 00:00 Physical Exam Vital Signs: Vital Signs: Last Vital Signs Temp 98.6 F 03/19/21 21:11 Pulse 93 03/19/21 21:11 Resp 16 03/19/21 21:11 BP 118/69 03/19/21 21:11 Pulse Ox 100 03/19/21 21:11 Body Mass Index 25.7 Course Course Course Narrative: This is RME in triage, full medical eval be performed by ED provider This is a 35yo F recently discharged from our facility on Wednesday for dehydration/gastroenteritis & elevated LFTs c/o continued N/V, CP, upper abd pain, and inability to tolerate PO. States hasn't eaten in a week. +decreased appetitie In triage patient noted to be tachycardic labs, lactic, blood cultures, IVF, symptomatic remedies ordered MDM - Abdominal Pain Lab Data Result diagrams: 03/19/21 21:48 03/19/21 21:48 Labs: Lab Results 03/19/21 03/19/21 03/19/21 Range/Units 21:20 21:48 21:48 WBC 14.9 H (4.8-10.8) X10*3/uL RBC 3.46 L (4.20-5.50) X10*6/uL Hgb 10.1 L (12.0-16.0) g/dl Hct 30.4 L (37-47) % MCV 87.9 (80-98) fL MCH 29.2 (27.0-33.0) pg MCHC 33.2 (31.0-35.0) g/dl RDW 15.5 (11.0-16.0) % Plt Count 436 H D (160-400) X10*3/uL MPV 9.4 (9.4-12.3) fL Immature Gran % (Auto) 2.8 H (0.0-0.4) % Neut % (Auto) 61.3 (45-73) % Lymph % (Auto) 25.9 (20-40) % [place] % (Auto) 7.7 (2-11) % Eos % (Auto) 2.1 (0-4) % Baso % (Auto) 0.2 (0-2) % Lymph # (Auto) 3.9 (1.2-4.9) X10*3/uL [place] # (Auto) 1.1 (0.1-1.2) X10*3/uL Eos # (Auto) 0.3 (0.0-0.4) X10*3/uL Baso # (Auto) 0.0 (0.0-0.2) X10*3/uL Abs Immat Gran (auto) 0.41 H (0.00-0.03) X10*3/uL Absolute Neuts (auto) 9.1 H (2.0-8.3) X10*3/uL Absolute Nucleated RBC 0.000 (0.0-0.012) X10*3/uL Nucleated RBC % (auto) 0.0 (0.0-0.2) /100WBC Sodium 140 (135-145) mmol/L Potassium 3.8 (3.3-5.1) mmol/L Chloride 103 (96-108) mmol/L Carbon Dioxide 28 (22-29) mmol/L Anion Gap 13 (12-20) BUN 8 L D (9-16) mg/dL Creatinine 0.83 (0.5-1.4) mg/dL Estim Creat Clear Calc 84.6 Estimated GFR > 60 Random Glucose 82 (60-115) mg/dL Lactic Acid (0.5-2.0) mmol/L Calcium 9.1 (8.4-10.2) mg/dL Magnesium 2.2 (1.6-2.6) mg/dL Total Bilirubin 0.4 (0.0-1.0) mg/dL Direct Bilirubin < 0.2 (0.0-0.5) mg/dL AST 12 (5-31) U/L ALT 14 (0-31) U/L Alkaline Phosphatase 126 H (39-117) U/L Troponin I High Sens (<3.5-17.0) ng/L Total Protein 6.8 (6.5-8.0) g/dL Albumin 3.9 (3.5-5.0) g/dL Lipase 17 (8-78) U/L Urine Color Urine Appearance Urine pH (5.0-8.0) Ur Specific [place] (1.005-1.025) Urine Protein (NEG-TRACE) MG/DL Urine Glucose (UA) (NEG) MG/DL Urine Ketones (NEG) MG/DL Urine Blood (NEG) Urine Nitrite (NEG) Ur Leukocyte Esterase (NEG) Urine RBC (0) /HPF Urine WBC (0-4) /HPF Ur Squamous Epith Cells /LPF Urine Bacteria /LPF Urine Test (NEGATIVE) Urine Opiates Screen (Not Detect) Urine Fentanyl Screen (Not Detect) Ur Barbiturates Screen (Not Detect) Ur Phencyclidine Scrn (Not Detect) Ur Amphetamines Screen (Not Detect) U Benzodiazepines Scrn (Not Detect) Urine Cocaine Screen (Not Detect) U Marijuana (THC) Screen (Not Detect) COVID-19 (MILAN) Negative (Negative) COVID-19 Clin Com See Note 03/19/21 03/19/21 03/19/21 Range/Units 21:48 21:48 22:07 WBC (4.8-10.8) X10*3/uL RBC (4.20-5.50) X10*6/uL Hgb (12.0-16.0) g/dl Hct (37-47) % MCV (80-98) fL MCH (27.0-33.0) pg MCHC (31.0-35.0) g/dl RDW (11.0-16.0) % Plt Count (160-400) X10*3/uL MPV (9.4-12.3) fL Immature Gran % (Auto) (0.0-0.4) % Neut % (Auto) (45-73) % Lymph % (Auto) (20-40) % [place] % (Auto) (2-11) % Eos % (Auto) (0-4) % Baso % (Auto) (0-2) % Lymph # (Auto) (1.2-4.9) X10*3/uL [place] # (Auto) (0.1-1.2) X10*3/uL Eos # (Auto) (0.0-0.4) X10*3/uL Baso # (Auto) (0.0-0.2) X10*3/uL Abs Immat Gran (auto) (0.00-0.03) X10*3/uL Absolute Neuts (auto) (2.0-8.3) X10*3/uL Absolute Nucleated RBC (0.0-0.012) X10*3/uL Nucleated RBC % (auto) (0.0-0.2) /100WBC Sodium (135-145) mmol/L Potassium (3.3-5.1) mmol/L Chloride (96-108) mmol/L Carbon Dioxide (22-29) mmol/L Anion Gap (12-20) BUN (9-16) mg/dL Creatinine (0.5-1.4) mg/dL Estim Creat Clear Calc Estimated GFR Random Glucose (60-115) mg/dL Lactic Acid 0.8 (0.5-2.0) mmol/L Calcium (8.4-10.2) mg/dL Magnesium (1.6-2.6) mg/dL Total Bilirubin (0.0-1.0) mg/dL Direct Bilirubin (0.0-0.5) mg/dL AST (5-31) U/L ALT (0-31) U/L Alkaline Phosphatase (39-117) U/L Troponin I High Sens < 3.5 (<3.5-17.0) ng/L Total Protein (6.5-8.0) g/dL Albumin (3.5-5.0) g/dL Lipase (8-78) U/L Urine Color YELLOW Urine Appearance CLEAR Urine pH 7.0 (5.0-8.0) Ur Specific [place] <= 1.005 (1.005-1.025) Urine Protein NEG (NEG-TRACE) MG/DL Urine Glucose (UA) NEG (NEG) MG/DL Urine Ketones NEG (NEG) MG/DL Urine Blood NEG (NEG) Urine Nitrite NEG (NEG) Ur Leukocyte Esterase TRACE H (NEG) Urine RBC 0-2 (0) /HPF Urine WBC 0-2 (0-4) /HPF Ur Squamous Epith Cells TRACE /LPF Urine Bacteria TRACE /LPF Urine Test (NEGATIVE) Urine Opiates Screen (Not Detect) Urine Fentanyl Screen (Not Detect) Ur Barbiturates Screen (Not Detect) Ur Phencyclidine Scrn (Not Detect) Ur Amphetamines Screen (Not Detect) U Benzodiazepines Scrn (Not Detect) Urine Cocaine Screen (Not Detect) U Marijuana (THC) Screen (Not Detect) COVID-19 (MILAN) (Negative) COVID-19 Clin Com 03/19/21 03/19/21 Range/Units 22:07 22:07 WBC (4.8-10.8) X10*3/uL RBC (4.20-5.50) X10*6/uL Hgb (12.0-16.0) g/dl Hct (37-47) % MCV (80-98) fL MCH (27.0-33.0) pg MCHC (31.0-35.0) g/dl RDW (11.0-16.0) % Plt Count (160-400) X10*3/uL MPV (9.4-12.3) fL Immature Gran % (Auto) (0.0-0.4) % Neut % (Auto) (45-73) % Lymph % (Auto) (20-40) % [place] % (Auto) (2-11) % Eos % (Auto) (0-4) % Baso % (Auto) (0-2) % Lymph # (Auto) (1.2-4.9) X10*3/uL [place] # (Auto) (0.1-1.2) X10*3/uL Eos # (Auto) (0.0-0.4) X10*3/uL Baso # (Auto) (0.0-0.2) X10*3/uL Abs Immat Gran (auto) (0.00-0.03) X10*3/uL Absolute Neuts (auto) (2.0-8.3) X10*3/uL Absolute Nucleated RBC (0.0-0.012) X10*3/uL Nucleated RBC % (auto) (0.0-0.2) /100WBC Sodium (135-145) mmol/L Potassium (3.3-5.1) mmol/L Chloride (96-108) mmol/L Carbon Dioxide (22-29) mmol/L Anion Gap (12-20) BUN (9-16) mg/dL Creatinine (0.5-1.4) mg/dL Estim Creat Clear Calc Estimated GFR Random Glucose (60-115) mg/dL Lactic Acid (0.5-2.0) mmol/L Calcium (8.4-10.2) mg/dL Magnesium (1.6-2.6) mg/dL Total Bilirubin (0.0-1.0) mg/dL Direct Bilirubin (0.0-0.5) mg/dL AST (5-31) U/L ALT (0-31) U/L Alkaline Phosphatase (39-117) U/L Troponin I High Sens (<3.5-17.0) ng/L Total Protein (6.5-8.0) g/dL Albumin (3.5-5.0) g/dL Lipase (8-78) U/L Urine Color Urine Appearance Urine pH (5.0-8.0) Ur Specific [place] (1.005-1.025) Urine Protein (NEG-TRACE) MG/DL Urine Glucose (UA) (NEG) MG/DL Urine Ketones (NEG) MG/DL Urine Blood (NEG) Urine Nitrite (NEG) Ur Leukocyte Esterase (NEG) Urine RBC (0) /HPF Urine WBC (0-4) /HPF Ur Squamous Epith Cells /LPF Urine Bacteria /LPF Urine Test NEGATIVE (NEGATIVE) Urine Opiates Screen POSITIVE H (Not Detect) Urine Fentanyl Screen POSITIVE H (Not Detect) Ur Barbiturates Screen Not Detected (Not Detect) Ur Phencyclidine Scrn Not Detected (Not Detect) Ur Amphetamines Screen Not Detected (Not Detect) U Benzodiazepines Scrn POSITIVE H (Not Detect) Urine Cocaine Screen Not Detected (Not Detect) U Marijuana (THC) Screen Not Detected (Not Detect) COVID-19 (MILAN) (Negative) COVID-19 Clin Com Discharge Plan Discharge Clinical Impression: Abdominal pain Patient Disposition: Still a Patient Prescriptions: No Action duloxetine [Cymbalta] 60 mg capsule,delayed release(DR/EC) 1 cap PO QPM RF: 0 celecoxib 200 mg capsule 1 cap PO DAILY RF: 0 cyclobenzaprine 10 mg tablet 1 tab PO TID PRN (Reason: muscle spasm) RF: 0 clonazepam 1 mg tablet 1 tab PO BID PRN (Reason: anxiety) RF: 0 buspirone 10 mg tablet 1 tab PO BID RF: 0 omeprazole 20 mg capsule,delayed release(DR/EC) 1 cap PO DAILY RF: 0 ondansetron HCl [Zofran] 4 mg tablet 4 mg PO Q8H PRN (Reason: nausea and vomiting) Qty: 9 RF: 0 oxycodone 5 mg tablet 5 mg PO Q8H PRN (Reason: pain) Qty: 9 RF: 0 PMFSH Social History Social History Household Members: Significant Other Household Members Other:: boyfriend Housing: House Do you presently have visiting nurse or other home services: No Patient Tobacco Use Status: Current everyday Tobacco user Tobacco use type: Cigarette Cigarette Packs Per Day: 1.5 Cigarettes Per Day: 30.0 e-Cigarette/Vaping Use: Currently Using Substance Use Type: Marijuana Advance Directives: No Advance Directives Information Provided: No Patient : No service: No Current occupational status: employed
--- NOTE | 2021-03-19 17:47 | ECG_ITS ---
Test Reason : ABDOMINAL PAIN Blood Pressure : / mmHG Vent. Rate : 085 BPM Atrial Rate : 085 BPM P-R Int : 116 ms QRS Dur : 070 ms QT Int : 354 ms P-R-T Axes : 017 -06 007 degrees QTc Int : 421 ms Normal sinus rhythm Normal ECG When compared with ECG of 19-JAN-2019 15:46, No significant change was found Referred By: Tiffanie Heard Electronically Signed By:AGNES BUI
[2021-03-19 21:11] VITALS: BP 118/69; PULSE 93; RESP 16; TEMP 37; O2SAT 100
--- NOTE | 2021-03-19 21:24 | PC.NURSE ---
Patient was just brought back a room in the ER. Orders were written 4 hours ago and patient medicated per emar as noted.
[2021-03-19] MEDS: 0.9 % Sodium Chloride 1,000 ML 999 ML IVCONT (21:31)
[2021-03-19] MEDS: ondansetron HCL 4 MG/2 ML VIAL IVPUSH (21:33)
[2021-03-19] MEDS: Famotidine/PF 20 MG/2 ML VIAL IVPUSH (21:34)
--- NOTE | 2021-03-19 21:35 | PC.NURSE ---
per md hold on lidocaine at this time due to nausea
--- NOTE | 2021-03-19 21:40 | ED.ABDPAIN ---
HPI - Abdominal Pain General Chief Complaint: Abdominal Pain Stated Complaint: VOMITTING AND HEADACHE Time Seen by Provider: 03/19/21 17:43 Source: patient Mode of arrival: ambulatory Limitations: no limitations History of Present Illness HPI narrative: 35-year-old female who presents emergency department for evaluation of nausea, vomiting, diarrhea and poor oral intake. Patient was recently hospitalized from [address] [place] [address] with gastroenteritis with nausea, vomiting, diarrhea and abdominal pain. The patient's workup at that time revealed no evidence of a urinary tract infection, C diff was negative. Patient was treated with IV fluids, antiemetics and pain medications with improved her symptoms and discharged home. The patient states that she was discharged prematurely because she snuck out of the hospital to smoke a cigarette however this is not reflected in the discharge summary. The patient states that since being discharged on 03/17/2021 she has continued to have persistent nausea. She states she has vomited 4-5 times per day. She denies any blood in the emesis. She states she has also had 3-4 episodes of loose diarrheal stool, with no blood in the stool. She states that she has had very poor oral intake. She has been able to eat small amounts of food and drink small amounts of fluid. She states she has had subjective fevers at home. She denied frequency, urgency or dysuria. The patient states that she gets chronic headaches and she attributes this to a spinal tap done in 2007 where she states that they took off too much fluid. Related Data Home Medications Medication Instructions Recorded Confirmed buspirone 10 mg tablet 1 tab PO BID 03/16/21 03/16/21 celecoxib 200 mg capsule 1 cap PO DAILY 03/16/21 03/16/21 clonazepam 1 mg tablet 1 tab PO BID PRN 03/16/21 03/16/21 cyclobenzaprine 10 mg tablet 1 tab PO TID PRN 03/16/21 03/16/21 duloxetine 60 mg capsule,delayed 1 cap PO QPM 03/16/21 03/16/21 release (Cymbalta) omeprazole 20 mg capsule,delayed 1 cap PO DAILY 03/16/21 03/16/21 release Previous Rx's Medication Instructions Recorded ondansetron HCl 4 mg tablet 4 mg PO Q8H PRN #9 tab 03/17/21 (Zofran) oxycodone 5 mg tablet 5 mg PO Q8H PRN #9 tab 03/17/21 promethazine 25 mg [address] Q6H PRN #12 ea 03/20/21 suppository (Promethegan) Allergies Allergy/AdvReac Type Severity Reaction Status Date / Time Sulfa (Sulfonamide AdvReac Unknown VOMITING Verified 03/15/21 10:20 Antibiotics) [SULFA (SULFONAMIDE ANTIBIOTICS)] Sulfamethoxazole Allergy Unknown vomiting Uncoded 10/16/19 00:00 Review of Systems Review of Systems Yes all other systems are reviewed and are negative Physical Exam Vital Signs: Vital Signs: Last Vital Signs Temp 98.6 F 03/19/21 21:11 Pulse 93 03/19/21 21:11 Resp 16 03/19/21 21:11 BP 118/69 03/19/21 21:11 Pulse Ox 100 03/19/21 21:11 Body Mass Index 25.7 Const: General: cooperative and no acute distress Orientation/consciousness: oriented to person and oriented to place Limitations: no limitations HENMT: Head: Yes normal to inspection, Yes normocephalic and Yes atraumatic Ears: external ears normal General nose exam: Normal external nose present Face and sinus: Yes normal facial exam Mouth: Normal oral and palatal mucosa present Throat: Yes posterior oropharynx normal Eyes: General: appearance normal, both eyes and all related structures Pupils: Equal, round and reactive pupils present Neck: Neck: Yes normal visual inspection, Yes no lymphadenopathy, Yes trachea midline and Yes supple Chest: Chest palpation & inspection: normal inspection of the chest and normal palpation of entire chest wall Resp: Effort & Inspection: normal respiratory effort and able to speak in complete sentences Auscultation: clear to auscultation bilaterally Cardio: Rate: regular rate Rhythm: regular rhythm Heart sounds: S1 normal heart sound present, S2 normal heart sound present and no murmurs GI: Inspection: Yes normal to inspection Palpation (GI): Soft to palpation, Tenderness to palpation present (GI) in the epigastrum (Mild) and no guarding Auscultation: normal bowel sounds : General: Yes no CVA tenderness Back/Spine/Pelvis: Back: no CVA tenderness Skin: General skin exam: no rashes or lesions noted Neuro: General: oriented to person and oriented to place Cranial nerves: Yes CN's II-XII intact bilaterally and Yes Equal, round and reactive pupils present Cognition (Neuro): normal cognition Motor exam (neuro): 5/5 motor strength present throughout Extrem: General: Yes normal to inspection Psych: Appearance: grossly normal Speech and movement: Normal speech and movement present Affect: normal affect Attitude: cooperative Thought process: Normal thought process present Thought content: Normal thought content present Course Course Course Narrative: 35-year-old female who presents emergency department for evaluation of nausea, vomiting, diarrhea and poor oral intake for 2 days. Patient was recently hospitalized for similar symptoms from 03/15 to . Patient's vital signs initially revealed an tachycardia with a heart rate of 125, repeat vital signs however revealed improvement with a pulse of 93 without any treatment. The rest the patient's vital signs were normal. Physical examination revealed mild midepigastric tenderness. Patient was ordered to get Zosyn 4 mg IV, Pepcid 20 mg IV, Toradol 30 mg IV and normal saline x1 L. laboratory evaluation is pending. 0018: The patient's laboratory evaluation did [place] [address] which is consistent with a viral infection. The patient's H&H was low at 10 and 30.4, she has had similar low values in the past. The patient's comprehensive metabolic panel was unremarkable except for an elevated alk-phos of 126. Patient's urinalysis revealed trace leukocyte esterase, microscopic was unremarkable. Urine tox screen was positive for opiates, benzodiazepines and fentanyl. The patient was prescribed oxycodone for her pain and this could explain the positive opiate screen. She also takes clonazepam and this could explain the positive benzodiazepines however, I do not think that she has received fentanyl. At this time, the patient's presentation is consistent with acute viral gastroenteritis. The patient was ordered to get a GI cocktail of viscous lidocaine 10 cc, 10 cc and Maalox 30 cc. The patient will be discharged home. The patient was given verbal and printed instructions prior to discharge. The patient was advised to follow-up with her PCP in 2 days and to return to the emergency department if her symptoms get worse or if she develops any new symptoms that are concerning to her. MDM - Abdominal Pain Lab Data Result diagrams: 03/19/21 21:48 03/19/21 21:48 Labs: Lab Results 03/19/21 03/19/21 03/19/21 Range/Units 21:20 21:48 21:48 WBC 14.9 H (4.8-10.8) X10*3/uL RBC 3.46 L (4.20-5.50) X10*6/uL Hgb 10.1 L (12.0-16.0) g/dl Hct 30.4 L (37-47) % MCV 87.9 (80-98) fL MCH 29.2 (27.0-33.0) pg MCHC 33.2 (31.0-35.0) g/dl RDW 15.5 (11.0-16.0) % Plt Count 436 H D (160-400) X10*3/uL MPV 9.4 (9.4-12.3) fL Immature Gran % (Auto) 2.8 H (0.0-0.4) % Neut % (Auto) 61.3 (45-73) % Lymph % (Auto) 25.9 (20-40) % [place] % (Auto) 7.7 (2-11) % Eos % (Auto) 2.1 (0-4) % Baso % (Auto) 0.2 (0-2) % Lymph # (Auto) 3.9 (1.2-4.9) X10*3/uL [place] # (Auto) 1.1 (0.1-1.2) X10*3/uL Eos # (Auto) 0.3 (0.0-0.4) X10*3/uL Baso # (Auto) 0.0 (0.0-0.2) X10*3/uL Abs Immat Gran (auto) 0.41 H (0.00-0.03) X10*3/uL Absolute Neuts (auto) 9.1 H (2.0-8.3) X10*3/uL Absolute Nucleated RBC 0.000 (0.0-0.012) X10*3/uL Nucleated RBC % (auto) 0.0 (0.0-0.2) /100WBC Sodium 140 (135-145) mmol/L Potassium 3.8 (3.3-5.1) mmol/L Chloride 103 (96-108) mmol/L Carbon Dioxide 28 (22-29) mmol/L Anion Gap 13 (12-20) BUN 8 L D (9-16) mg/dL Creatinine 0.83 (0.5-1.4) mg/dL Estim Creat Clear Calc 84.6 Estimated GFR > 60 Random Glucose 82 (60-115) mg/dL Lactic Acid (0.5-2.0) mmol/L Calcium 9.1 (8.4-10.2) mg/dL Magnesium 2.2 (1.6-2.6) mg/dL Total Bilirubin 0.4 (0.0-1.0) mg/dL Direct Bilirubin < 0.2 (0.0-0.5) mg/dL AST 12 (5-31) U/L ALT 14 (0-31) U/L Alkaline Phosphatase 126 H (39-117) U/L Troponin I High Sens (<3.5-17.0) ng/L Total Protein 6.8 (6.5-8.0) g/dL Albumin 3.9 (3.5-5.0) g/dL Lipase 17 (8-78) U/L Urine Color Urine Appearance Urine pH (5.0-8.0) Ur Specific [place] (1.005-1.025) Urine Protein (NEG-TRACE) MG/DL Urine Glucose (UA) (NEG) MG/DL Urine Ketones (NEG) MG/DL Urine Blood (NEG) Urine Nitrite (NEG) Ur Leukocyte Esterase (NEG) Urine RBC (0) /HPF Urine WBC (0-4) /HPF Ur Squamous Epith Cells /LPF Urine Bacteria /LPF Urine Test (NEGATIVE) Urine Opiates Screen (Not Detect) Urine Fentanyl Screen (Not Detect) Ur Barbiturates Screen (Not Detect) Ur Phencyclidine Scrn (Not Detect) Ur Amphetamines Screen (Not Detect) U Benzodiazepines Scrn (Not Detect) Urine Cocaine Screen (Not Detect) U Marijuana (THC) Screen (Not Detect) COVID-19 (MILAN) Negative (Negative) COVID-19 Clin Com See Note 03/19/21 03/19/21 03/19/21 Range/Units 21:48 21:48 22:07 WBC (4.8-10.8) X10*3/uL RBC (4.20-5.50) X10*6/uL Hgb (12.0-16.0) g/dl Hct (37-47) % MCV (80-98) fL MCH (27.0-33.0) pg MCHC (31.0-35.0) g/dl RDW (11.0-16.0) % Plt Count (160-400) X10*3/uL MPV (9.4-12.3) fL Immature Gran % (Auto) (0.0-0.4) % Neut % (Auto) (45-73) % Lymph % (Auto) (20-40) % [place] % (Auto) (2-11) % Eos % (Auto) (0-4) % Baso % (Auto) (0-2) % Lymph # (Auto) (1.2-4.9) X10*3/uL [place] # (Auto) (0.1-1.2) X10*3/uL Eos # (Auto) (0.0-0.4) X10*3/uL Baso # (Auto) (0.0-0.2) X10*3/uL Abs Immat Gran (auto) (0.00-0.03) X10*3/uL Absolute Neuts (auto) (2.0-8.3) X10*3/uL Absolute Nucleated RBC (0.0-0.012) X10*3/uL Nucleated RBC % (auto) (0.0-0.2) /100WBC Sodium (135-145) mmol/L Potassium (3.3-5.1) mmol/L Chloride (96-108) mmol/L Carbon Dioxide (22-29) mmol/L Anion Gap (12-20) BUN (9-16) mg/dL Creatinine (0.5-1.4) mg/dL Estim Creat Clear Calc Estimated GFR Random Glucose (60-115) mg/dL Lactic Acid 0.8 (0.5-2.0) mmol/L Calcium (8.4-10.2) mg/dL Magnesium (1.6-2.6) mg/dL Total Bilirubin (0.0-1.0) mg/dL Direct Bilirubin (0.0-0.5) mg/dL AST (5-31) U/L ALT (0-31) U/L Alkaline Phosphatase (39-117) U/L Troponin I High Sens < 3.5 (<3.5-17.0) ng/L Total Protein (6.5-8.0) g/dL Albumin (3.5-5.0) g/dL Lipase (8-78) U/L Urine Color YELLOW Urine Appearance CLEAR Urine pH 7.0 (5.0-8.0) Ur Specific [place] <= 1.005 (1.005-1.025) Urine Protein NEG (NEG-TRACE) MG/DL Urine Glucose (UA) NEG (NEG) MG/DL Urine Ketones NEG (NEG) MG/DL Urine Blood NEG (NEG) Urine Nitrite NEG (NEG) Ur Leukocyte Esterase TRACE H (NEG) Urine RBC 0-2 (0) /HPF Urine WBC 0-2 (0-4) /HPF Ur Squamous Epith Cells TRACE /LPF Urine Bacteria TRACE /LPF Urine Test (NEGATIVE) Urine Opiates Screen (Not Detect) Urine Fentanyl Screen (Not Detect) Ur Barbiturates Screen (Not Detect) Ur Phencyclidine Scrn (Not Detect) Ur Amphetamines Screen (Not Detect) U Benzodiazepines Scrn (Not Detect) Urine Cocaine Screen (Not Detect) U Marijuana (THC) Screen (Not Detect) COVID-19 (MILAN) (Negative) COVID-19 Clin Com 03/19/21 03/19/21 Range/Units 22:07 22:07 WBC (4.8-10.8) X10*3/uL RBC (4.20-5.50) X10*6/uL Hgb (12.0-16.0) g/dl Hct (37-47) % MCV (80-98) fL MCH (27.0-33.0) pg MCHC (31.0-35.0) g/dl RDW (11.0-16.0) % Plt Count (160-400) X10*3/uL MPV (9.4-12.3) fL Immature Gran % (Auto) (0.0-0.4) % Neut % (Auto) (45-73) % Lymph % (Auto) (20-40) % [place] % (Auto) (2-11) % Eos % (Auto) (0-4) % Baso % (Auto) (0-2) % Lymph # (Auto) (1.2-4.9) X10*3/uL [place] # (Auto) (0.1-1.2) X10*3/uL Eos # (Auto) (0.0-0.4) X10*3/uL Baso # (Auto) (0.0-0.2) X10*3/uL Abs Immat Gran (auto) (0.00-0.03) X10*3/uL Absolute Neuts (auto) (2.0-8.3) X10*3/uL Absolute Nucleated RBC (0.0-0.012) X10*3/uL Nucleated RBC % (auto) (0.0-0.2) /100WBC Sodium (135-145) mmol/L Potassium (3.3-5.1) mmol/L Chloride (96-108) mmol/L Carbon Dioxide (22-29) mmol/L Anion Gap (12-20) BUN (9-16) mg/dL Creatinine (0.5-1.4) mg/dL Estim Creat Clear Calc Estimated GFR Random Glucose (60-115) mg/dL Lactic Acid (0.5-2.0) mmol/L Calcium (8.4-10.2) mg/dL Magnesium (1.6-2.6) mg/dL Total Bilirubin (0.0-1.0) mg/dL Direct Bilirubin (0.0-0.5) mg/dL AST (5-31) U/L ALT (0-31) U/L Alkaline Phosphatase (39-117) U/L Troponin I High Sens (<3.5-17.0) ng/L Total Protein (6.5-8.0) g/dL Albumin (3.5-5.0) g/dL Lipase (8-78) U/L Urine Color Urine Appearance Urine pH (5.0-8.0) Ur Specific [place] (1.005-1.025) Urine Protein (NEG-TRACE) MG/DL Urine Glucose (UA) (NEG) MG/DL Urine Ketones (NEG) MG/DL Urine Blood (NEG) Urine Nitrite (NEG) Ur Leukocyte Esterase (NEG) Urine RBC (0) /HPF Urine WBC (0-4) /HPF Ur Squamous Epith Cells /LPF Urine Bacteria /LPF Urine Test NEGATIVE (NEGATIVE) Urine Opiates Screen POSITIVE H (Not Detect) Urine Fentanyl Screen POSITIVE H (Not Detect) Ur Barbiturates Screen Not Detected (Not Detect) Ur Phencyclidine Scrn Not Detected (Not Detect) Ur Amphetamines Screen Not Detected (Not Detect) U Benzodiazepines Scrn POSITIVE H (Not Detect) Urine Cocaine Screen Not Detected (Not Detect) U Marijuana (THC) Screen Not Detected (Not Detect) COVID-19 (MILAN) (Negative) COVID-19 Clin Com Discharge Plan Discharge Clinical Impression: Abdominal pain, Gastroenteritis Patient Disposition: Home, Self-Care Instructions: Gastroenteritis (ED) Additional Instructions: You had a slight elevation in your white blood cell count which is consistent with a viral gastroenteritis. You have anemia, which events similar anemia in the past. Your urine was negative for infection Take ibuprofen 200 mg pills, 3 pills every 6 hours as needed for pain. Take Tylenol (acetaminophen) 500 mg pills, 2 pills every 4 to 6 hours as needed for pain. For nausea and vomiting take Phenergan suppositories 25 mg inserted rectally every 6-8 hours as needed. Follow-up with your doctor in 2 days. Please return to the emergency department if your symptoms get worse or if you develop any symptoms that are concerning to you. Prescriptions: New promethazine [Promethegan] 25 mg suppository [address] Q6H PRN (Reason: nausea and vomiting) Qty: 12 RF: 0 No Action duloxetine [Cymbalta] 60 mg capsule,delayed release(DR/EC) 1 cap PO QPM RF: 0 celecoxib 200 mg capsule 1 cap PO DAILY RF: 0 cyclobenzaprine 10 mg tablet 1 tab PO TID PRN (Reason: muscle spasm) RF: 0 clonazepam 1 mg tablet 1 tab PO BID PRN (Reason: anxiety) RF: 0 buspirone 10 mg tablet 1 tab PO BID RF: 0 omeprazole 20 mg capsule,delayed release(DR/EC) 1 cap PO DAILY RF: 0 ondansetron HCl [Zofran] 4 mg tablet 4 mg PO Q8H PRN (Reason: nausea and vomiting) Qty: 9 RF: 0 oxycodone 5 mg tablet 5 mg PO Q8H PRN (Reason: pain) Qty: 9 RF: 0 PMFSH Past Medical History [facility] Narrative: Past medical history: GERD, hiatal hernia, typhoid fever 2018, chronic headaches which the patient attributes to a spinal tap that she had in 2007. Surgical history: Appendectomy coli cholecystectomy, C-spine surgery, tonsils and adenoid surgery. Social history: Patient smokes half pack of cigarettes times 19 years. She occasionally drinks alcohol. She states she occasionally smokes marijuana. Social History Social History Household Members: Significant Other Household Members Other:: boyfriend Housing: House Do you presently have visiting nurse or other home services: No Patient Tobacco Use Status: Current everyday Tobacco user Tobacco use type: Cigarette Cigarette Packs Per Day: 1.5 Cigarettes Per Day: 30.0 e-Cigarette/Vaping Use: Currently Using Substance Use Type: Marijuana Advance Directives: No Advance Directives Information Provided: No Patient : No service: No Current occupational status: employed
[2021-03-19] MEDS: Ketorolac Tromethamine 15 MG/ML VIAL 30 MG IVPUSH (21:45)
[2021-03-19 21:51] LABS: COVID-19 Test Negative (Negative); IDNOW Serial# 08D9AD1C
[2021-03-19 21:56] LABS: MANUAL DIFF FLAG NO
[2021-03-19 21:58] LABS: Basophils Percent Auto 0.2 % (0-2); Eosinophils Absolute Auto 0.3 X10*3/uL (0.0-0.4); Eosinophils Percent Auto 2.1 % (0-4); Hematocrit 30.4 % (37-47); Hemoglobin 10.1 g/dl (12.0-16.0); Imm Gran Abs Auto 0.41 X10*3/uL (0.00-0.03); Imm Gran Pct Auto 2.8 % (0.0-0.4); Lymphocytes Absolute Auto 3.9 X10*3/uL (1.2-4.9); Lymphocytes Percent Auto 25.9 % (20-40); Mean Corpuscular HGB Conc 33.2 g/dl (31.0-35.0); Mean Corpuscular Hemoglobin 29.2 pg (27.0-33.0); Mean Corpuscular Volume 87.9 fL (80-98); Mean Platelet Volume 9.4 fL (9.4-12.3); Monocytes Absolute Auto 1.1 X10*3/uL (0.1-1.2); Monocytes Percent Auto 7.7 % (2-11); Neutrophils Absolute Auto 9.1 X10*3/uL (2.0-8.3); Neutrophils Percent Auto 61.3 % (45-73); Platelet Count 436 X10*3/uL (160-400); Red Blood Count 3.46 X10*6/uL (4.20-5.50); Red Cell Distribution Width 15.5 % (11.0-16.0); White Blood Count 14.9 X10*3/uL (4.8-10.8)
[2021-03-19 22:00] VITALS: BP 118/69
[2021-03-19 22:19] LABS: Glucose Urine UA NEG (NEG); Leukocyte Esterase Urine TRACE (NEG); Nitrite Urine NEG (NEG); Specific Gravity - Urine <= 1.005 (1.005-1.025); UACC Culture Trigger YES; Urine Blood NEG (NEG); Urine Ketones NEG (NEG); Urine Protein NEG (NEG-TRACE)
[2021-03-19 22:26] LABS: Lactic Acid 0.8 mmol/L (0.5-2.0)
[2021-03-19 22:30] LABS: Alanine Aminotransferase 14 U/L (0-31); Albumin Level 3.9 g/dL (3.5-5.0); Alkaline Phosphatase 126 U/L (39-117); Anion Gap 13 (12-20); Aspartate Amino Transferase 12 U/L (5-31); Bilirubin Direct < 0.2 mg/dL (0.0-0.5); Bilirubin Total 0.4 mg/dL (0.0-1.0); Blood Urea Nitrogen 8 mg/dL (9-16); Calcium 9.1 mg/dL (8.4-10.2); Carbon Dioxide 28 mmol/L (22-29); Chloride 103 mmol/L (96-108); Creatinine Clr Calc Pharmacy 84.6; Estimated Glomerular Filt Rate > 60; Glucose Random 82 mg/dL (60-115); Lipase 17 U/L (8-78); Magnesium 2.2 mg/dL (1.6-2.6); Potassium 3.8 mmol/L (3.3-5.1); Sodium 140 mmol/L (135-145); Total Protein 6.8 g/dL (6.5-8.0)
[2021-03-19 22:35] LABS: Troponin-I High Sensitivity < 3.5 ng/L (<3.5-17.0)
[2021-03-19 22:43] LABS: Appearance Urine CLEAR; Color Urine YELLOW
[2021-03-19 22:56] LABS: Bacteria Urine TRACE /LPF; RBC Urine 0-2 /HPF (0); Squamous Epithelial Cell Urine TRACE /LPF; WBC Urine 0-2 /HPF (0-4)
[2021-03-19 22:57] LABS: UPreg QC Valid YES; Urine Pregnancy NEGATIVE (NEGATIVE)
[2021-03-19 23:01] LABS: Amphetamine Screen Urine Not Detected (Not Detect); Barbiturates, Urine Not Detected (Not Detect); Benzodiazepines Screen Urine POSITIVE (Not Detect); Cannabinoid Screen Urine Not Detected (Not Detect); Cocaine Screen Urine Not Detected (Not Detect); Fentanyl, urine POSITIVE (Not Detect); Opiate Screen Urine POSITIVE (Not Detect); Phencyclidine Screen Urine Not Detected (Not Detect)
[2021-03-20] VITALS: BP 112/74; PULSE 84; RESP 15; O2SAT 100
[2021-03-20] MEDS: Magnesium Hydrox/Alum Hydrox 30 ML ORAL.SUSP PO (00:47)
[2021-03-20] MEDS: Lidocaine HCl Viscous 2 % 15 ML SOLUTION MUCOUS MEM (00:47)
[2021-03-20] MEDS: PHENobarb/Hyoscy/Atropine/Scop 10 ML ELIXIR PO (00:47)
== END 2021-03-20 01:02 | disposition home or self-care (01) ==
PROVIDERS: Physician Assistant; Emergency Provider Emergency Medicine Emergency Medical Services
DX: K52.9 Noninfective gastroenteritis and colitis, unspecified (principal); R10.9 Unspecified abdominal pain; Z20.822 Contact with and (suspected) exposure to COVID-19; F17.210 Nicotine dependence, cigarettes, uncomplicated; Z79.899 Other long term (current) drug therapy
CPT/HCPCS: 36415; 80048; 80076; 80307; 81001; 81025; 83605; 83690; 83735; 84484; 85025; 87040; 87086; 87635; 93005; 96361; 96374; 96375; 99284; J1885; J2405

== ENCOUNTER 2021-08-11 13:09 | Outpatient (REF) | payer OTHER, SELFPAY ==
[2021-08-11 15:10] LABS: Binax Internal Control QC Valid; Binax Now Covid-19 Ag Negative (Negative)
== END 2021-08-11 13:10 | disposition home or self-care (01) ==
LOC: HO.LAB 13:09
PROVIDERS: Visit Provider Internal Medicine
DX: Z20.822 Contact with and (suspected) exposure to COVID-19 (principal)
CPT/HCPCS: 36415; C9803

== ENCOUNTER 2021-08-28 15:10 | Emergency (ER) | payer OTHER, SELFPAY ==
[2021-08-28 15:19] VITALS: BP 133/91; PULSE 118; RESP 20; TEMP 36.5; O2SAT 97; BMI 25.7
[2021-08-28 15:54] LABS: COVID-19 Test Negative (Negative); IDNOW Serial# 9DD0AD1C
--- NOTE | 2021-08-28 16:44 | ED_ITS ---
HPI - URI/Sore Throat General Chief Complaint: Upper Respiratory Symptoms Stated Complaint: Covid symptoms Time Seen by Provider: 08/28/21 16:19 History of Present Illness HPI Narrative: Patient complains of runny nose mild cough fatigue body aches fever congestion and a very itchy rash on her hands and on her thigh She has no chest pain or shortness of breath, and she is vaccinated and boosted for COVID Related Data Home Medications Medication Instructions Recorded Confirmed buspirone 10 mg tablet 1 tab PO BID 03/16/21 03/16/21 celecoxib 200 mg capsule 1 cap PO DAILY 03/16/21 03/16/21 clonazepam 1 mg tablet 1 tab PO BID PRN 03/16/21 03/16/21 cyclobenzaprine 10 mg tablet 1 tab PO TID PRN 03/16/21 03/16/21 duloxetine 60 mg capsule,delayed 1 cap PO QPM 03/16/21 03/16/21 release (Cymbalta) omeprazole 20 mg capsule,delayed 1 cap PO DAILY 03/16/21 03/16/21 release Previous Rx's Medication Instructions Recorded ondansetron HCl 4 mg tablet 4 mg PO Q8H PRN #9 tab 03/17/21 (Zofran) oxycodone 5 mg tablet 5 mg PO Q8H PRN #9 tab 03/17/21 promethazine 25 mg rectal 25 mg AR Q6H PRN #12 ea 03/20/21 suppository (Promethegan) prednisone 20 mg tablet 40 mg PO DAILY 3 Days #6 tab 08/28/21 Allergies Allergy/AdvReac Type Severity Reaction Status Date / Time Sulfa (Sulfonamide AdvReac Unknown VOMITING Verified 08/28/21 15:19 Antibiotics) [SULFA (SULFONAMIDE ANTIBIOTICS)] Sulfamethoxazole Allergy Unknown vomiting Uncoded 10/16/19 00:00 Review of Systems Verdana 4l Review of Systems: Verdana 4d Verdana 4d Negatives are no chills no headache no stiff neck no sore throat no difficulty breathing or swallowing no chest pain no shortness of breath no abdominal pain no nausea vomiting or diarrhea no joint pains no numbness or weakness no leg swellingswelling no calf pain no dysuria Yes all other systems are reviewed and are negative PMFSH Past Medical History Source: nursing notes reviewed Medical History (Updated 08/28/21 @ 16:52 by BALAJI Tompkins) Pyelonephritis Social History Social History Household Members: Significant Other Household Members Other:: boyfriend Housing: House Do you presently have visiting nurse or other home services: No Patient Tobacco Use Status: Current everyday Tobacco user Tobacco use type: Cigarette Cigarette Packs Per Day: 1.5 Cigarettes Per Day: 30.0 e-Cigarette/Vaping Use: Currently Using Substance Use Type: Marijuana Advance Directives: No Advance Directives Information Provided: No Patient : No service: No Current occupational status: employed Physical Exam Verdana 4l Vital Signs: Verdana 4d Verdana 4d Vital Signs: Verdana 4d Verdana 4Bd Last Vital Signs Verdana 4d Pocketbook Maker New 4d Pocketbook Maker New 4d Temp 97.7 F 08/28/21 15:19 Pocketbook Maker New 4d Pulse 118 H 08/28/21 15:19 Pocketbook Maker New 4d Resp 20 08/28/21 15:19 BP 133/91 H 08/28/21 15:19 Pulse Ox 97 08/28/21 15:19 BMI result Body Mass Index 25.7 Pulse of 118 on arrival was double checked by me and her pulse rate was 84 steady and strong Patient is A&O x3 comfortable relaxed and cooperative The eyes no redness or discharge The sinuses nontender The pharynx is clear without redness swelling or exudate Neck is supple Chest clear to auscultation bilateral Heart no murmur Extremities full range of motion x4 Skin exam there is mild maculopapular rash on neck arms and legs, no redness or swelling no sign of skin infection Course Course Course Narrative: Well-appearing patient who tested negative today for COVID but hands typical COVID symptoms plus a rash Initial pulse was 118 but when I rechecked it with the patient comfortable in the bed the pulse was 84 with no shortness of breath or calf swelling Patient was discharged with treatment for the rash and Motrin Tylenol for the body aches MDM - URI/Sore Throat Lab Data Labs: Lab Results 08/28/21 Range/Units 15:25 COVID-19 (MILAN) Negative (Negative) COVID-19 Clin Com See Note Discharge Plan Discharge Clinical Impression: Acute viral syndrome, Rash Patient Disposition: Home, Self-Care Additional Instructions: Your rapid COVID test was negative I will call you with PCR test results when they come back Today your well-appearing with normal vital signs no sign of any dangerous illness now Motrin and Tylenol or best for any body aches We are doing a 3 day course of prednisone you got her 1st dose here as well as antihistamines for the itchy rash Follow with primary doctor as needed Return to ER any time any worse condition or any concerns Prescriptions: New prednisone 20 mg tablet 40 mg PO DAILY 3 Days Qty: 6 0RF No Action duloxetine [Cymbalta] 60 mg capsule,delayed release(DR/EC) 1 cap PO QPM 0RF celecoxib 200 mg capsule 1 cap PO DAILY 0RF cyclobenzaprine 10 mg tablet 1 tab PO TID PRN (Reason: muscle spasm) 0RF clonazepam 1 mg tablet 1 tab PO BID PRN (Reason: anxiety) 0RF buspirone 10 mg tablet 1 tab PO BID 0RF omeprazole 20 mg capsule,delayed release(DR/EC) 1 cap PO DAILY 0RF ondansetron HCl [Zofran] 4 mg tablet 4 mg PO Q8H PRN (Reason: nausea and vomiting) Qty: 9 0RF oxycodone 5 mg tablet 5 mg PO Q8H PRN (Reason: pain) Qty: 9 0RF promethazine [Promethegan] 25 mg suppository 25 mg AR Q6H PRN (Reason: nausea and vomiting) Qty: 12 0RF Stand Alone Forms: Work/School Release
[2021-08-28] MEDS: Loratadine 10 MG TABLET PO (16:52)
[2021-08-28] MEDS: predniSONE 20 MG TABLET 60 MG PO (16:52)
[2021-08-28 17:09] LABS: Influenza A PCR NEGATIVE (Negative); Influenza B PCR NEGATIVE (Negative); Resp Syncy Virus RNA Qual PCR NEGATIVE (Negative); SARS COV2 PCR INHOUSE NEGATIVE (Negative)
== END 2021-08-28 17:12 | disposition home or self-care (01) ==
PROVIDERS: Physician Assistant Medical; Emergency Provider Emergency Medicine Emergency Medical Services
DX: B34.9 Viral infection, unspecified (principal); Z20.822 Contact with and (suspected) exposure to COVID-19; R21 Rash and other nonspecific skin eruption; F17.200 Nicotine dependence, unspecified, uncomplicated; F12.90 Cannabis use, unspecified, uncomplicated
CPT/HCPCS: 0241U; 87635; 99282; 99283

== ENCOUNTER 2021-09-30 17:46 | Emergency (ER) | payer OTHER, SELFPAY ==
[2021-09-30 19:03] VITALS: BP 130/80; PULSE 101; RESP 16; TEMP 37.3; O2SAT 99; BMI 28.3
--- NOTE | 2021-09-30 23:44 | ED_ITS ---
HPI - Eye Problem General Chief complaint: Eye Problems Stated complaint: blurry vision/dizziness Time Seen by Provider: 09/30/21 23:44 Source: patient Mode of arrival: ambulatory Limitations: no limitations History of Present Illness HPI Narrative: Patient complaining of blurred vision for last 3 days with slight headache . No history of diabetes blurred vision gets better when she closes either eye. No pain no scotomas no loss of vision no history of migraines in the past Related Data Home Medications Medication Instructions Recorded Confirmed buspirone 10 mg tablet 1 tab PO BID 03/16/21 03/16/21 celecoxib 200 mg capsule 1 cap PO DAILY 03/16/21 03/16/21 clonazepam 1 mg tablet 1 tab PO BID PRN 03/16/21 03/16/21 cyclobenzaprine 10 mg tablet 1 tab PO TID PRN 03/16/21 03/16/21 duloxetine 60 mg capsule,delayed 1 cap PO QPM 03/16/21 03/16/21 release (Cymbalta) omeprazole 20 mg capsule,delayed 1 cap PO DAILY 03/16/21 03/16/21 release Previous Rx's Medication Instructions Recorded ondansetron HCl 4 mg tablet 4 mg PO Q8H PRN #9 tab 03/17/21 (Zofran) oxycodone 5 mg tablet 5 mg PO Q8H PRN #9 tab 03/17/21 promethazine 25 mg rectal 25 mg SC Q6H PRN #12 ea 03/20/21 suppository (Promethegan) prednisone 20 mg tablet 40 mg PO DAILY 3 Days #6 tab 08/28/21 Allergies Allergy/AdvReac Type Severity Reaction Status Date / Time Sulfa (Sulfonamide AdvReac Unknown VOMITING Verified 08/28/21 15:19 Antibiotics) [SULFA (SULFONAMIDE ANTIBIOTICS)] Sulfamethoxazole Allergy Unknown vomiting Uncoded 10/16/19 00:00 Review of Systems Review of Systems: Yes all other systems are reviewed and are negative PMFSH Past Medical History Medical History Pyelonephritis Social History Social History Household Members: Significant Other Household Members Other:: boyfriend Housing: House Do you presently have visiting nurse or other home services: No Patient Tobacco Use Status: Current everyday Tobacco user Tobacco use type: Cigarette Cigarette Packs Per Day: 1.5 Cigarettes Per Day: 30.0 e-Cigarette/Vaping Use: Currently Using Substance Use Type: Marijuana Advance Directives: No Advance Directives Information Provided: No Patient : No service: No Current occupational status: employed Physical Exam Vital Signs: Vital Signs: Last Vital Signs Temp 99.2 F 09/30/21 19:03 Pulse 101 H 09/30/21 19:03 Resp 16 09/30/21 19:03 BP 130/80 09/30/21 19:03 Pulse Ox 99 09/30/21 19:03 BMI result Body Mass Index 28.3 Const: General: healthy appearing and comfortable Orientation/consciousness: patient oriented x3 HENMT: Head: Yes normal to inspection and Yes normocephalic Eyes: General: appearance normal, both eyes and all related structures Visual Katz: normal visual katz by confrontation Alignment and Position: alignment normal Periorbital: periorbital findings normal Eyelids: Yes eyelids normal Conjunctivae: conjunctivae normal Sclerae: sclerae normal Corneas: corneas normal Pupils: Equal, round and reactive pupils present, Pupils normal by confrontation and Pupil accommodation reflex normal EOM: EOMs intact bilaterally and no movement deficit Direct Ophthalmoscopy: no papilledema, fundi normal bilaterally and anterior chamber normal Neuro: General: patient oriented x3 and no focal motor deficits Cranial nerves: Yes Equal, round and reactive pupils present MDM - Eye Problem MDM Narrative Medical decision making narrative: Patient with blurred vision with glasses visual acuity right eye 20/50 left eye 20/70 patient vision gets better when she looks to the Pin hole Lab Data Attestation: I reviewed the patient's lab results. Labs: Lab Results 10/01/21 Range/Units 00:18 POC Glucose 119 H (60-115) mg/dL Discharge Plan Discharge Clinical Impression: Eye refraction disorder Patient Disposition: Home, Self-Care Instructions: Refractive Errors of the Eye (ED) Additional Instructions: Need to see shipping and receiving associate to get your eyes checked Prescriptions: No Action duloxetine [Cymbalta] 60 mg capsule,delayed release(DR/EC) 1 cap PO QPM 0RF celecoxib 200 mg capsule 1 cap PO DAILY 0RF cyclobenzaprine 10 mg tablet 1 tab PO TID PRN (Reason: muscle spasm) 0RF clonazepam 1 mg tablet 1 tab PO BID PRN (Reason: anxiety) 0RF buspirone 10 mg tablet 1 tab PO BID 0RF omeprazole 20 mg capsule,delayed release(DR/EC) 1 cap PO DAILY 0RF ondansetron HCl [Zofran] 4 mg tablet 4 mg PO Q8H PRN (Reason: nausea and vomiting) Qty: 9 0RF oxycodone 5 mg tablet 5 mg PO Q8H PRN (Reason: pain) Qty: 9 0RF promethazine [Promethegan] 25 mg suppository 25 mg SC Q6H PRN (Reason: nausea and vomiting) Qty: 12 0RF prednisone 20 mg tablet 40 mg PO DAILY 3 Days Qty: 6 0RF Referrals: Yannick Johnson [Physician] - 2 days Stand Alone Forms: Work/School Release
[2021-10-01] MEDS: Butalb/Acetamin/Caff 50/325/40 TABLET 1 TAB PO (00:19)
[2021-10-01 00:23] LABS: Glucose, Whole Blood 119 mg/dL (60-115)
== END 2021-10-01 00:25 | disposition home or self-care (01) ==
PROVIDERS: Emergency Provider Internal Medicine
DX: H53.8 Other visual disturbances (principal); H52.7 Unspecified disorder of refraction; R42 Dizziness and giddiness; R51.9 Headache, unspecified; F12.90 Cannabis use, unspecified, uncomplicated; Z79.899 Other long term (current) drug therapy; F17.210 Nicotine dependence, cigarettes, uncomplicated; Z71.6 Tobacco abuse counseling
CPT/HCPCS: 82947; 99283

== ENCOUNTER → 2022-04-20 10:22 | Outpatient (BNVA) | payer OTHER, SELFPAY | PROVIDERS: PCP Internal Medicine; Visit Provider Nurse Practitioner Psychiatric/Mental Health | DX: Z51.81 Encounter for therapeutic drug level monitoring (principal); F11.20 Opioid dependence, uncomplicated | CPT/HCPCS: 80305; 99212 ==

== ENCOUNTER → 2022-04-27 10:17 | Outpatient (BNVA) | payer OTHER, SELFPAY | PROVIDERS: PCP Internal Medicine; Visit Provider Nurse Practitioner Psychiatric/Mental Health | DX: Z51.81 Encounter for therapeutic drug level monitoring (principal); F11.20 Opioid dependence, uncomplicated | CPT/HCPCS: 80305; 99212 ==

== ENCOUNTER → 2022-05-12 09:32 | Outpatient (BNVA) | payer OTHER, SELFPAY | PROVIDERS: PCP Internal Medicine; Visit Provider Nurse Practitioner Psychiatric/Mental Health | DX: F11.20 Opioid dependence, uncomplicated (principal); Z32.02 Encounter for pregnancy test, result negative; Z51.81 Encounter for therapeutic drug level monitoring; Z79.899 Other long term (current) drug therapy | CPT/HCPCS: 80305; 81025; 96372; 99212; Q9992 ==

== ENCOUNTER → 2022-06-12 10:53 | Outpatient (BNVA) | payer OTHER, SELFPAY | PROVIDERS: Visit Provider Nurse Practitioner Psychiatric/Mental Health | DX: Z51.81 Encounter for therapeutic drug level monitoring (principal); Z32.02 Encounter for pregnancy test, result negative; F11.20 Opioid dependence, uncomplicated | CPT/HCPCS: 80305; 81025; 96372 ==

== ENCOUNTER 2022-07-10 09:59 | Outpatient (REF) | payer OTHER, SELFPAY ==
[2022-07-10 14:11] LABS: Alanine Aminotransferase 11 U/L (0-31); Albumin Level 4.2 g/dL (3.5-5.0); Alkaline Phosphatase 116 U/L (39-117); Anion Gap 11 (12-20); Aspartate Amino Transferase 17 U/L (5-31); Bilirubin Total 0.3 mg/dL (0.0-1.0); Blood Urea Nitrogen 11 mg/dL (9-16); Calcium 9.5 mg/dL (8.4-10.2); Carbon Dioxide 27 mmol/L (22-29); Chloride 105 mmol/L (96-108); Estimated Glomerular Filt Rate 58; Glucose Random 59 mg/dL (60-115); Sodium 139 mmol/L (135-145); Total Protein 6.9 g/dL (6.5-8.0)
== END 2022-07-10 10:00 | disposition home or self-care (01) ==
LOC: HO.LAB 09:59
PROVIDERS: PCP Internal Medicine; Visit Provider Nurse Practitioner Psychiatric/Mental Health
DX: F11.20 Opioid dependence, uncomplicated (principal); Z51.81 Encounter for therapeutic drug level monitoring; Z79.899 Other long term (current) drug therapy; Z32.02 Encounter for pregnancy test, result negative
CPT/HCPCS: 36415; 80053; 80305; 81025; 96372; 99212

== ENCOUNTER → 2022-08-10 14:20 | Outpatient (BNVA) | payer OTHER, SELFPAY | PROVIDERS: PCP Internal Medicine; Visit Provider Nurse Practitioner Psychiatric/Mental Health | DX: F11.20 Opioid dependence, uncomplicated (principal); Z32.02 Encounter for pregnancy test, result negative | CPT/HCPCS: 80305; 81025; 96372; 99212 ==

== ENCOUNTER → 2022-09-07 09:03 | Outpatient (BNVA) | payer OTHER, SELFPAY | PROVIDERS: PCP Internal Medicine; Visit Provider Nurse Practitioner Psychiatric/Mental Health | DX: Z51.81 Encounter for therapeutic drug level monitoring (principal); F11.20 Opioid dependence, uncomplicated | CPT/HCPCS: 80305; 81025; 96372; 99212 ==

== ENCOUNTER → 2022-10-12 10:35 | Outpatient (BNVA) | payer OTHER, SELFPAY | PROVIDERS: PCP Internal Medicine; Visit Provider Nurse Practitioner Psychiatric/Mental Health | DX: F11.20 Opioid dependence, uncomplicated (principal); Z32.02 Encounter for pregnancy test, result negative | CPT/HCPCS: 80305; 81025; 96372; 99212 ==

== ENCOUNTER → 2022-11-13 10:54 | Outpatient (BNVA) | payer OTHER, SELFPAY | PROVIDERS: PCP Internal Medicine | DX: F11.90 Opioid use, unspecified, uncomplicated (principal); Z32.02 Encounter for pregnancy test, result negative; Z51.81 Encounter for therapeutic drug level monitoring; Z23 Encounter for immunization; Z79.899 Other long term (current) drug therapy | CPT/HCPCS: 80305; 81025; 96372 ==

== ENCOUNTER → 2022-12-11 08:53 | Outpatient (BNVA) | payer OTHER, SELFPAY | PROVIDERS: PCP Internal Medicine; Visit Provider Nurse Practitioner Psychiatric/Mental Health | DX: Z51.81 Encounter for therapeutic drug level monitoring (principal); F11.20 Opioid dependence, uncomplicated; Z32.02 Encounter for pregnancy test, result negative | CPT/HCPCS: 80305; 81025; 96372; 99212 ==

== ENCOUNTER → 2023-01-18 08:53 | Outpatient (BNVA) | payer OTHER, SELFPAY | PROVIDERS: PCP Internal Medicine; Visit Provider Nurse Practitioner Psychiatric/Mental Health | DX: Z51.81 Encounter for therapeutic drug level monitoring (principal); F11.20 Opioid dependence, uncomplicated | CPT/HCPCS: 80305; 81025; 96372; 99212 ==

== ENCOUNTER 2023-02-26 09:45 | Outpatient (AMB) | payer OTHER, SELFPAY ==
--- NOTE | 2023-02-26 09:47 | A.OFFVIS_ITS ---
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 Started working at [employer], feels good about this. Still attending school PFSH Medical History Pyelonephritis Social History Household Members: Significant Other Household Members Other:: boyfriend Housing: House Do you presently have visiting nurse or other home services: No Patient Tobacco Use Status: Current everyday Tobacco user Tobacco use type: Cigarette Cigarette Packs Per Day: 1.5 Cigarettes Per Day: 30.0 e-Cigarette/Vaping Use: Currently Using Substance Use Type: Marijuana service: No Current occupational status: employed Review of Systems Const Reports as per HPI and Reports no additional complaints Physical Exam Vital Signs: Last Vital Signs Pulse 98 02/26/23 09:55 BP 122/72 02/26/23 09:55 Pulse Ox 98 02/26/23 09:55 Oxygen Delivery Method Room Air 02/26/23 09:55 Const General: cooperative, healthy appearing, comfortable, no acute distress, well developed and alert Nutritional Appearance: well nourished Orientation/consciousness: patient oriented x3 Limitations: no limitations Neuro General: patient oriented x3 Psych Appearance: grossly normal Mental Status: mental status grossly normal Speech and movement: Normal speech and movement present Affect: Anxious affect present Attitude: cooperative Thought process: Normal thought process present Thought content: Normal thought content present Insight: Fair insight present (Psych) Judgement: Fair judgement present (Psych) (fair but adequate) Office Meds Sublocade ER Performing Provider: Aline Batista CNP Administered by: Kavitha Campuzano on 02/26/23 10:03 Dose Route Admin Location Lot Number Expiration Date NDC Quality Assurance Nurse 100 mg subcut RLQ [id number] 12/01/23 [address]-5 [employer]. Comments: Assessed area prior to injection. Educated pt on signs/symptoms of infection. Encouraged to call the [facility] with questions or concerns. Tolerated injection well. Results AMB Test Urine AMB Test Urine Negative Last Edit by Genoveva Gordon CMA on 09:57 AMB 14 Panel Urine Drug Screen Urine Marijuana (THC) Negative Last Edit by Genoveva Gordon CMA on 02/26/23 10:01 Urine Cocaine Positive Last Edit by Genoveva Gordon CMA on 02/26/23 10:01 Urine Morphine Negative Last Edit by Genoveva Gordon CMA on 02/26/23 10:01 Urine Methamphetamine Negative Last Edit by Genoveva Gordon CMA on 02/26/23 10:01 Urine Amphetamine Negative Last Edit by Genoveva Gordon CMA on 02/26/23 10:0 1 Urine Benzodiazepine Negative Last Edit by Genoveva Gordon CMA on 02/26/23 10:01 Urine Barbiturates Negative Last Edit by Genoveva Gordon CMA on 02/26/23 10: 01 Urine Methadone Negative Last Edit by Genovvea Gordon CMA on 02/26/23 10:01 Urine Buprenorphine Positive Last Edit by Genoveva Gordon CMA on 02/26/23 10 :01 Urine Tricyclic Antidepressant Negative Last Edit by Genoveva Gordon CMA on 02/26/23 10:01 Urine MDMA Negative Last Edit by Genoveva Gordon CMA on 02/26/23 10:01 Urine Oxycodone Negative Last Edit by Genoveva Gordon CMA on 02/26/23 10:01 Urine Phencyclidine Negative Last Edit by Genoveva Gordon CMA on 02/26/23 10 :01 Urine Propoxyphene Negative Last Edit by Genoveva Gordon CMA on 02/26/23 10: 01 Results Reviewed Results Reviewed: Laboratory Last Values [facility] Negative 02/26/23 09:56 POC Urine Buprenorphine Positive 02/26/23 09:56 POC Urine Morphine Negative 02/26/23 09:56 POC Urine Oxycodone Negative 02/26/23 09:56 POC Urine Methadone Negative 02/26/23 09:56 POC Urine Propoxyphene Negative 02/26/23 09:56 POC Urine Barbiturates Negative 02/26/23 09:56 POC U Tricyclic Antidpr Negative 02/26/23 09:56 POC Urine PCP Negative 02/26/23 09:56 POC Ur Amphetamines Negative 02/26/23 09:56 POC Ur Methamphetamine Negative 02/26/23 09:56 POC Urine MDMA Negative 02/26/23 09:56 POC Ur Benzodiazepine Negative 02/26/23 09:56 POC Urine Cocaine Positive 02/26/23 09:56 POC Ur Marijuana (THC) Negative 02/26/23 09:56 Assessment & Plan Assessment & Plan (1) Opioid use disorder: Code(s): F11.90 - Opioid use, unspecified, uncomplicated Plan: * tolerated injection * follow up 4 weeks Orders: Orders AMB Buprenorphine Injection - Patient Supplied 02/26/23 F11.90 - Opioid use, unspecified, uncomplicated AMB HCG Urine Test 02/26/23 Z32.01 - Encounter for test, result positive, Z32.02 - Encounter for test, result negative AMB 14 Panel Urine Drug Screen 02/26/23 Z51.81 - Encounter for therapeutic drug level monitoring Coding Level of Care Code Est Pt Level 3 (26142) Diagnoses Opioid use disorder F11.90
[2023-02-26 09:55] VITALS: BP 122/72; PULSE 98; O2SAT 98
== END 2023-02-26 10:13 | disposition home or self-care (01) ==
LOC: HO.HCC 09:45
PROVIDERS: PCP Internal Medicine; Visit Provider Nurse Practitioner Psychiatric/Mental Health
DX: F11.90 Opioid use, unspecified, uncomplicated (principal)
CPT/HCPCS: 99213; Q9991

== ENCOUNTER → 2023-02-26 09:45 | Outpatient (BNVA) | payer OTHER, SELFPAY | PROVIDERS: PCP Internal Medicine; Visit Provider Nurse Practitioner Psychiatric/Mental Health | DX: F11.90 Opioid use, unspecified, uncomplicated (principal); F17.210 Nicotine dependence, cigarettes, uncomplicated; U07.0 Vaping-related disorder; Z51.81 Encounter for therapeutic drug level monitoring; Z79.899 Other long term (current) drug therapy; Z32.02 Encounter for pregnancy test, result negative | CPT/HCPCS: 80305; 81025; 96372; 99212 ==

== ENCOUNTER 2023-03-23 11:09 | Outpatient (REF) | payer OTHER, SELFPAY ==
[2023-03-23 13:47] LABS: Alanine Aminotransferase 11 U/L (0-31); Albumin Level 3.9 g/dL (3.5-5.0); Alkaline Phosphatase 128 U/L (39-117); Aspartate Amino Transferase 21 U/L (5-31); Bilirubin Direct 0.2 mg/dL (0.0-0.5); Bilirubin Total 0.5 mg/dL (0.0-1.0); Total Protein 7.3 g/dL (6.5-8.0)
== END 2023-03-23 11:10 | disposition home or self-care (01) ==
LOC: HO.HMGCLDS 11:09
PROVIDERS: PCP Internal Medicine; Visit Provider Nurse Practitioner Psychiatric/Mental Health
DX: Z79.899 Other long term (current) drug therapy (principal)
CPT/HCPCS: 36415; 80076

== ENCOUNTER 2023-04-23 13:50 | Emergency (ER) | payer OTHER, SELFPAY ==
--- NOTE | ~2023-04-23 | CT_ITS ---
EXAMINATION: CT ABDOMEN AND PELVIS WITH CONTRAST CLINICAL INFORMATION: Pain COMPARISON: 01/19/2019 TECHNIQUE: Multidetector volumetric images were obtained from the superior aspect of the liver through the pubic symphysis following administration 85 mL of Omnipaque 350 intravenous contrast. Sagittal and coronal reformatted images were obtained on the technologist's workstation. Oral contrast: No This CT examination was performed using dose optimization techniques as appropriate, variously including the following: *Automated exposure control *Adjustment of mA and/or kV according to patient size (this includes techniques or standardized protocols for targeted exams where dose is matched to indication/reason for exam; i.e. extremities or head) *Use of iterative reconstruction technique DLP: 368 mGy-cm FINDINGS: LUNG BASES: The visualized lung bases are unremarkable. LIVER, GALLBLADDER, AND BILIARY TREE: The liver is normal in size, shape, and attenuation. No focal hepatic lesion or biliary ductal dilatation is present. Patient is status post cholecystectomy PANCREAS: Unremarkable. SPLEEN: Unremarkable. ADRENAL GLANDS: Unremarkable. KIDNEYS AND URETERS: The kidneys are normal in size, shape, and attenuation. No hydronephrosis, hydroureter, or calculi seen. No perinephric stranding. BLADDER: Bladder is decompressed GASTROINTESTINAL TRACT: The bowel pattern is nonobstructing. There is no free fluid. A normal appendix is not seen but no suspicion around the cecum ABDOMINAL WALL: 4 scattered areas of soft tissue density with stranding. These could be related to injections in the anterior subcutaneous fat. Correlation recommended clinically LYMPH NODES: There is no bulky adenopathy here. VASCULAR: Unremarkable. PELVIC VISCERA: Unremarkable. OSSEOUS STRUCTURES: Stable-appearing area of sclerosis and lucency in the left iliac of uncertain etiology CT/CT abdomen pelvis w IV con IMPRESSION: No acute finding. The bowel pattern is nonobstructing. There is no free fluid. Other findings are as noted above. 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 Fleischner guidelines were followed.
[2023-04-23 13:59] VITALS: BP 144/121; PULSE 145; RESP 18; TEMP 36.7; O2SAT 98; BMI 22.1
--- NOTE | 2023-04-23 14:00 | ED_ITS ---
HPI - General Adult General Chief complaint: General Medical Stated complaint: Constipation Stomach Pains No Appetite Time Seen by Provider: 04/23/23 20:41 Source: patient, RN notes reviewed and old records reviewed Mode of arrival: ambulatory Limitations: no limitations History of Present Illness HPI narrative: 38-year-old female presents for evaluation of abdominal pain and constipation. Patient reports increasing constipation and decreased appetite for the last 2 months. She also reports a 38 lb weight loss in about 2 months She reports a history of cholecystectomy, and previous exploratory laparotomy Patient denies any fevers, chills but reports ?I cannot eat anything solid without vomiting. ? She reports that she has been able to eat a full meal in approximately 1 week She has been able tolerate fluids Denies any recent travel Patient follows with GI, Dr. Yang Related Data Home Medications Medication Instructions Recorded Confirmed buspirone 10 mg tablet 1 tab PO BID 03/16/21 12/11/22 celecoxib 200 mg capsule 1 cap PO DAILY 03/16/21 12/11/22 cyclobenzaprine 10 mg tablet 1 tab PO TID PRN muscle spasm 03/16/21 12/11/22 duloxetine 60 mg capsule,delayed 1 cap PO QPM 03/16/21 12/11/22 release (Cymbalta) omeprazole 20 mg capsule,delayed 1 cap PO DAILY 03/16/21 12/11/22 release Previous Rx's Medication Instructions Recorded naloxone 4 mg/actuation nasal 4 mg intranasal Q2M PRN opioid 05/07/22 spray (Narcan) overdose #2 ea buprenorphine 100 mg/0.5 mL 100 mg (0.5 mL) subcut ONCE #0.5 mL 11/17/22 solution,exten.rel.subcutaneous syringe (Sublocade) clonidine HCl 0.1 mg tablet 0.1 mg PO BEDTIME PRN anxiety #10 01/18/23 tabs hydroxyzine HCl 50 mg tablet 50 mg PO BID PRN anxiety #60 tabs 01/18/23 lactulose 20 gram/30 mL oral 20 g (30 mL) PO BID PRN 04/23/23 solution constipation #600 mL Allergies Allergy/AdvReac Type Severity Reaction Status Date / Time Sulfa (Sulfonamide AdvReac Unknown VOMITING Verified 02/26/23 09:56 Antibiotics) [SULFA (SULFONAMIDE ANTIBIOTICS)] Sulfamethoxazole Allergy Unknown vomiting Uncoded 02/26/23 09:56 Review of Systems 2 Constitutional: Constitutional: Denies chills, Denies fever(s), Denies increased appetite, Reports lethargy, Reports malaise, Reports poor appetite and Reports weight loss Eyes: Eyes: Denies blurry vision ENT: Denies sore throat Cardiovascular: Cardiovascular: Denies chest pain and Denies dyspnea Respiratory: Respiratory: Denies cough and Denies dyspnea Gastrointestinal: Gastrointestinal: Denies abdominal pain, Reports constipation, Reports nausea and Denies vomiting Genitourinary: Genitourinary: Denies difficulty voiding Musculoskeletal: Musculoskeletal: Denies back pain PMFSH Past Medical History Medical History Pyelonephritis Social History Social History Household Members: Significant Other Household Members Other:: boyfriend Housing: House Do you presently have visiting nurse or other home services: No Alcohol intake: former Patient Tobacco Use Status: Current everyday Tobacco user Tobacco use type: Cigarette Cigarette Packs Per Day: 1.5 Cigarettes Per Day: 30.0 Smoked in Last 30 Days: Yes e-Cigarette/Vaping Use: Currently Using Use of substances other than those prescribed or required for medical reasons: Yes Substance Use Type: Marijuana Substance Use Frequency: Occasionally Last Used Substance: Weeks (ago) Any prior treatment program specific to substance use: No Advance Directives: No Advance Directives Information Provided: No Patient : No service: No Current occupational status: employed Physical Exam ED Vital Signs: Vital Signs - 24 hr 04/23/23 13:59 04/23/23 21:40 Temperature 98.1 F 98.8 F Pulse Rate 145 H 88 Respiratory Rate 18 18 Blood Pressure 144/121 H 135/90 H Pulse Oximetry 98 100 Oxygen Delivery Method Room Air Room Air BMI result Body Mass Index 22.1 Const General: healthy appearing, comfortable, no acute distress, alert and awake Nutritional Appearance: well nourished Orientation/consciousness: patient oriented x3 HENMT Head: Yes normocephalic and Yes atraumatic Eyes Eyelids: Yes eyelids normal Conjunctivae: conjunctivae normal Sclerae: sclerae normal Corneas: corneas normal Pupils: Equal, round and reactive pupils present EOM: EOMs intact bilaterally Neck Neck: Yes full ROM Resp Effort & Inspection: normal respiratory effort, able to speak in complete sentences and not labored Cardio Rate: regular rate Rhythm: regular rhythm GI Inspection: No distended Palpation (GI): Soft to palpation, not firm, Tenderness to palpation present (GI) (Diffuse abdominal tenderness without any focal tenderness, no guarding), no guarding and not rigid Skin General skin exam: elasticity normal Neuro General: patient oriented x3 Cranial nerves: Yes Equal, round and reactive pupils present and Yes Bilaterally intact EOM present Cognition (Neuro): normal cognition Extrem Other: Moving all extremities well without any obvious deformities Course Course Course Narrative: This is an RME: Additional HPI, ROS, PE not included below will be deferred to primary provider. 38 yo f presents w/ 30 lb weight loss ( in less than a month in a half) , abd pain, nausea, constipation, early satiety X 3 months worsening. plan- labs, imaging Reevaluation(s) Reevaluation #1: CT imaging without any acute findings. She does have [id number] constipation. Will discharge the patient with lactulose. This may be related to her chronic opioid use. I did discuss the left iliac lucency that appears stable with the patient and she reports that she was never made aware of this. Time: 23:16 Medications Administered Discontinued Medications Generic Name Dose Route Start Last Admin Trade Name Freq PRN Reason Stop Dose Admin Sodium Chloride 1,000 mls @ 999 mls/hr 04/23/23 21:00 04/23/23 21:38 Ns IV 04/23/23 22:00 999 mls/hr .Q1H1M TINO Administration Iohexol 100 ml 04/23/23 22:31 04/23/23 22:31 Iohexol 350 Mg/Ml 100 Ml Infus..Btl IV 04/23/23 22:32 85 ml ONCE ONE Administration Medical Decision Making Medical Decision Making MDM Narrative: 38-year-old female presents for evaluation of abdominal pain. She reports a history of chronic abdominal pain but worsening over the last 2 months. She has a family history significant for colon cancer as her mother was diagnosed at age 44. Patient reports her last colonoscopy and endoscopy was 1 year ago. Denies any fevers, chills her labs are reassuring. She also complains of mucus and pus with bowel movements. Patient follows with GI, will add on a GI panel to send for stool studies. Will get a CT scan of the abdomen pelvis as the weight loss Differential Diagnosis Differential Diagnoses: The differential diagnosis associated with the presentation includes Celiac disease IBS Abdominal pain Acute appendicitis Constipation Colon mass Lab Data MDM Lab Attestation statement: I reviewed the patient's lab results. No leukocytosis or anemia. No electrolyte abnormalities. Normal renal function 04/23/23 14:22 04/23/23 14:22 Labs: Lab Results 04/23/23 04/23/23 Range/Units 14:22 22:49 WBC 6.2 (4.8-10.8) X10*3/uL RBC 4.97 (4.20-5.50) X10*6/uL Hgb 13.8 (12.0-16.0) g/dl Hct 42.3 (37.0-47.0) % MCV 85.1 (80.0-98.0) fL MCH 27.8 (27.0-33.0) pg MCHC 32.6 (31.0-35.0) g/dl RDW 13.5 (11.0-16.0) % Plt Count 372 (160-400) X10*3/uL MPV 9.9 (9.4-12.3) fL Immature Gran % (Auto) 0.3 (0.0-0.4) % Neut % (Auto) 52.8 (45-73) % Lymph % (Auto) 34.2 (20-40) % [place] % (Auto) 8.2 (2-11) % Eos % (Auto) 3.7 (0-4) % Baso % (Auto) 0.8 (0-2) % Lymph # (Auto) 2.1 (1.2-4.9) X10*3/uL [place] # (Auto) 0.5 (0.1-1.2) X10*3/uL Eos # (Auto) 0.2 (0.0-0.4) X10*3/uL Baso # (Auto) 0.1 (0.0-0.2) X10*3/uL Abs Immat Gran (auto) 0.02 (0.00-0.03) X10*3/uL Absolute Neuts (auto) 3.3 (2.0-8.3) x10*3/uL Absolute Nucleated RBC 0.000 (0.0-0.012) X10*3/uL Nucleated RBC % (auto) 0.0 (0.0-0.2) /100WBC Sodium 138 (135-145) mmol/L Potassium 3.4 (3.3-5.1) mmol/L Chloride 104 (96-108) mmol/L Carbon Dioxide 25 (22-29) mmol/L Anion Gap 12 (12-20) BUN 4 L (9-16) mg/dL Creatinine 0.97 (0.5-1.4) mg/dL Estim Creat Clear Calc 63.8 Estimated GFR > 60 Random Glucose 113 (60-115) mg/dL Calcium 9.5 (8.4-10.2) mg/dL Magnesium 2.0 (1.6-2.6) mg/dL Total Bilirubin 0.4 (0.0-1.0) mg/dL AST 19 (5-31) U/L ALT 10 (0-31) U/L Alkaline Phosphatase 120 H (39-117) U/L Total Protein 7.3 (6.5-8.0) g/dL Albumin 3.9 (3.5-5.0) g/dL Lipase 12 (8-78) U/L Beta HCG, Quant < 2 mIU/mL Urine Color Yellow Urine Appearance Clear Urine pH 6.0 (5.0-9.0) Ur Specific [place] >= 1.030 H (1.005-1.025) Urine Protein Negative (Neg-Trace) mg/dL Urine Glucose (UA) Negative (Negative) mg/dL Urine Ketones Negative (Negative) mg/dL Urine Blood Moderate (2+) H (Negative) Urine Nitrite Negative (Negative) Ur Leukocyte Esterase Trace H (Negative) Urine RBC 11-20 H (0-2) /HPF Urine WBC 0-5 (0-5) /HPF Ur Squamous Epith Cells 3-5 (0-2) /HPF Urine Bacteria None Seen (None Seen) Hyaline Casts 0-2 (0-2) /LPF Independent Interpretation I performed an independent interpretation of an: CT Scan (Mild to moderate stool burden) Radiology Impression Discussion of test interpretation with radiology: I have reviewed the radiologist's reading. Radiologist Impression: No acute finding. The bowel pattern is nonobstructing. There is no free fluid Discharge Plan Discharge Clinical Impression: Abdominal pain, Constipation Patient Disposition: Home, Self-Care Instructions: Constipation (ED) Additional Instructions: Take lactulose as directed Increase fluid and fiber intake in your diet Follow-up with your GI doctor to Your CT scan did not show any acute findings to explain your symptoms You do have a lesion on your left iliac bone as discussed that appears stable Prescriptions: New lactulose 20 gram/30 mL solution 20 g PO BID PRN (Reason: constipation) Qty: 600 0RF No Action naloxone [Narcan] 4 mg/actuation spray,non-aerosol 4 mg intranasal Q2M PRN (Reason: opioid overdose) Qty: 2 0RF Rx Instructions: spray 1 dose into ONE nostril; alternate nostrils w each dose until help arrives Sublocade 100 mg/0.5 mL solution, extended rel syringe 100 mg subcut ONCE Qty: 0.5 5RF duloxetine [Cymbalta] 60 mg capsule,delayed release(DR/EC) 1 cap PO QPM celecoxib 200 mg capsule 1 cap PO DAILY cyclobenzaprine 10 mg tablet 1 tab PO TID PRN (Reason: muscle spasm) buspirone 10 mg tablet 1 tab PO BID omeprazole 20 mg capsule,delayed release(DR/EC) 1 cap PO DAILY hydroxyzine HCl 50 mg tablet 50 mg PO BID PRN (Reason: anxiety) Qty: 60 1RF clonidine HCl 0.1 mg tablet 0.1 mg PO BEDTIME PRN (Reason: anxiety) Qty: 10 0RF
[2023-04-23 14:29] LABS: MANUAL DIFF FLAG NO
[2023-04-23 14:35] LABS: Basophils Absolute Auto 0.1 X10*3/uL (0.0-0.2); Basophils Percent Auto 0.8 % (0-2); Eosinophils Absolute Auto 0.2 X10*3/uL (0.0-0.4); Eosinophils Percent Auto 3.7 % (0-4); Hematocrit 42.3 % (37.0-47.0); Hemoglobin 13.8 g/dl (12.0-16.0); Imm Gran Abs Auto 0.02 X10*3/uL (0.00-0.03); Imm Gran Pct Auto 0.3 % (0.0-0.4); Lymphocytes Absolute Auto 2.1 X10*3/uL (1.2-4.9); Lymphocytes Percent Auto 34.2 % (20-40); Mean Corpuscular HGB Conc 32.6 g/dl (31.0-35.0); Mean Corpuscular Hemoglobin 27.8 pg (27.0-33.0); Mean Corpuscular Volume 85.1 fL (80.0-98.0); Mean Platelet Volume 9.9 fL (9.4-12.3); Monocytes Absolute Auto 0.5 X10*3/uL (0.1-1.2); Monocytes Percent Auto 8.2 % (2-11); Neutrophils Absolute Auto 3.3 x10*3/uL (2.0-8.3); Neutrophils Percent Auto 52.8 % (45-73); Platelet Count 372 X10*3/uL (160-400); Red Blood Count 4.97 X10*6/uL (4.20-5.50); Red Cell Distribution Width 13.5 % (11.0-16.0); White Blood Count 6.2 X10*3/uL (4.8-10.8)
[2023-04-23 14:51] LABS: Alanine Aminotransferase 10 U/L (0-31); Albumin Level 3.9 g/dL (3.5-5.0); Alkaline Phosphatase 120 U/L (39-117); Anion Gap 12 (12-20); Aspartate Amino Transferase 19 U/L (5-31); Bilirubin Total 0.4 mg/dL (0.0-1.0); Blood Urea Nitrogen 4 mg/dL (9-16); Calcium 9.5 mg/dL (8.4-10.2); Carbon Dioxide 25 mmol/L (22-29); Chloride 104 mmol/L (96-108); Creatinine Clr Calc Pharmacy 63.8; Estimated Glomerular Filt Rate > 60; Glucose Random 113 mg/dL (60-115); Lipase 12 U/L (8-78); Potassium 3.4 mmol/L (3.3-5.1); Sodium 138 mmol/L (135-145); Total Protein 7.3 g/dL (6.5-8.0)
[2023-04-23] MEDS: 0.9 % Sodium Chloride 1,000 ML 999 ML IV (21:38)
[2023-04-23 21:40] VITALS: BP 135/90; PULSE 88; RESP 18; TEMP 37.1; O2SAT 100
[2023-04-23 22:04] LABS: HCG Quantitative < 2 mIU/mL
[2023-04-23] MEDS: iohexoL 350 MG/ML 100 ML INFUS..BTL IV (22:31)
[2023-04-23 22:58] LABS: Appearance Urine Clear; Color Urine Yellow; Glucose Urine UA Negative (Negative); Leukocyte Esterase Urine Trace (Negative); Nitrite Urine Negative (Negative); Specific Gravity - Urine >= 1.030 (1.005-1.025); UMIC TRIGGER UACC YES; Urine Blood Moderate (2+) (Negative); Urine Ketones Negative (Negative); Urine Protein Negative (Neg-Trace)
[2023-04-23 23:04] LABS: Bacteria Urine None Seen (None Seen); Hyaline Casts Urine 0-2 /LPF (0-2); WBC Urine 0-5 /HPF (0-5)
== END 2023-04-23 23:45 | disposition home or self-care (01) ==
PROVIDERS: Physician Assistant; Emergency Provider Emergency Medicine; PCP Internal Medicine
DX: K59.00 Constipation, unspecified (principal); R10.2 Pelvic and perineal pain; F17.210 Nicotine dependence, cigarettes, uncomplicated; Z71.6 Tobacco abuse counseling; Z79.899 Other long term (current) drug therapy
CPT/HCPCS: 36415; 74177; 80053; 81001; 83690; 83735; 84702; 85025; 99284; Q9967